=== PATIENT | female | born 1985 | race Hispanic/Latino ===

== ENCOUNTER → 2021-08-01 | Outpatient (CLI) | payer MEDICAID | END | disposition home or self-care (01) | LOC: RAH 08:31 | PROVIDERS: ATTEND Surgery | DX: K21.9 Gastro-esophageal reflux disease without esophagitis (principal); K44.9 Diaphragmatic hernia without obstruction or gangrene; Z98.84 Bariatric surgery status | CPT/HCPCS: 74240 ==

== ENCOUNTER 2024-02-13 21:37 | Emergency (ER) | payer MEDICAID ==
[~2024-02-13] VITALS: Ht 170.2 cm; Wt 70.3 kg
--- NOTE | 2024-02-13 21:44 | NUR ---
STREP, COVID AND FLU SWABS COLLECTED AND SENT FOR ANY FURTHER ORDERS UA CUP PROVIDED
--- NOTE | 2024-02-13 21:47 | NUR ---
ORDERS RECEIVED FROM Katty KILGORE NP AND АНДРЕЙ
[2024-02-13 22:13] LABS: RAPID GROUP A STREP negative (NEGATIVE)
[2024-02-13 22:19] LABS: SARS-CoV-2, RNA, NAAT NEGATIVE SARS CoV-2 (NEGATIVE)
[2024-02-13 22:23] LABS: INFLUENZA TYPE A Negative For Type A (NEGATIVE); INFLUENZA TYPE B Negative For Type B (NEGATIVE)
[2024-02-13 22:54] LABS: BASOPHILS # (AUTO) 0.03 K/uL (0.00-0.20); BASOPHILS % (AUTO) 0.6 % (0.0-5.0); EOSINOPHILS # (AUTO) 0.05 K/uL (0.00-0.70); HEMATOCRIT 38.9 % (36-48); IMMATURE GRANULOCYTE ABSOLUTE 0.02 K/uL (0-1); LYMPHOCYTES # (AUTO) 1.7 K/uL (1.0-4.8); LYMPHOCYTES % (AUTO) 35.1 % (21.0-51.0); MEAN CORPUSCULAR HEMOGLOBIN 30.3 pg (27.0-33.0); MEAN CORPUSCULAR HGB CONC 33.7 g/dL (32.0-36.0); MEAN CORPUSCULAR VOLUME 89.8 fL (79-99); MONOCYTES # (AUTO) 0.6 K/uL (0.1-1.0); MONOCYTES % (AUTO) 12.3 % (3.0-13.0); NEUTROPHILS # (AUTO) 2.4 K/uL (1.8-7.7); NEUTROPHILS % (AUTO) 50.6 % (40.0-77.0); PLATELET COUNT (AUTO) 331 K/uL (130-400); RED BLOOD CELL COUNT(AUTO) 4.33 MIL/uL (4.00-5.50); RED CELL DISTRIBUTION WIDTH 13.3 % (11.0-15.5); WHITE BLOOD COUNT (AUTO) 4.8 K/uL (4.8-10.8)
[2024-02-13 23:02] LABS: APPEARANCE,URINE CLEAR (CLEAR); BILIRUBIN,URINE NEGATIVE (NEGATIVE); COLOR,URINE YELLOW (YELLOW); GLUCOSE, URINE (UA) NEGATIVE (NEGATIVE); KETONES,URINE NEGATIVE (NEGATIVE); LEUKOCYTE ESTERASE ,URINE NEGATIVE Leu/uL (NEGATIVE); NITRATE,URINE NEGATIVE (NEGATIVE); OCCULT BLOOD,URINE NEGATIVE (NEGATIVE); POTASSIUM 3.5 mmol/L (3.5-5.1); PROTEIN,URINE 30 mg/dL (NEGATIVE); UROBILINOGEN,URINE 0.2 mg/dL (0.2-1.0)
[2024-02-13 23:03] LABS: ADD UA MICROSCOPIC YES
[2024-02-13 23:06] LABS: ALBUMIN 3.3 g/dL (3.5-5.0); BILIRUBIN,TOTAL 0.3 mg/dL (0.2-1.0)
[2024-02-13 23:07] LABS: MUCUS,URINE RARE LPF (None Seen); SQUAMOUS EPITHELIAL CELL,UR MOD /HPF (0-2)
--- NOTE | 2024-02-13 23:44 | NUR ---
CT EXAMS PENDING, PT IN LOBBY, NO IV, NO CONSENT
[2024-02-14] MEDS: 0.9%NACL 1000ML 1,000 ML IV STA (00:05)
[2024-02-14] MEDS ORDERED: IOHEXOL-350 75 ML VIAL IV ONE (00:05)
[2024-02-14 00:25] VITALS: TEMP 98.8
--- NOTE | 2024-02-14 00:26 | ERN ---
ED Note History of Present Illness Stated Complaint: BODYACHES,ABD PAIN,FEVER,GARAY,DIARRHEA Chief Complaint: Multiple Complaints Time Seen by MD: 21:40 Time Seen by Midlevel: 21:45 Dictation: 38-YEAR-OLD FEMALE WITH A MEDICAL HISTORY OF RA COMPLAINING OF ABDOMINAL PAIN, DIARRHEA, HEADACHE OR FEVERS SINCE FRIDAY NIGHT. PATIENT STATES SHE WAS ALREADY SEEN ON FRIDAY AT NOW WAS DIAGNOSED WITH DEHYDRATION AND STATES THAT HER SODIUM, CALCIUM, OR LOW AND SHE HAD ELEVATED WHITE COUNT. Allergies: Coded Allergies: emollient base (Unverified Allergy, Unknown, 02/13/24) tretinoin (Unverified Allergy, Unknown, 02/13/24) Past Medical History Past Medical History: Arthritis, Diabetes-Type II, Other Additional Past Medical Hx: THYROID Surgical History: Hysterectomy, Cholecystectomy, Other, Bariatric Surgery Surgical History Other: THYROID Review of System Dictation CONSTITUTIONAL: NEGATIVE FOR FEVER,CHILLS, AND WEIGHT LOSS EYES: NEGATIVE FOR INJURY, PAIN,REDNESS, AND DISCHARGE ENT: NEGATIVE FOR INJURY,PAIN OR SWELLING CARDIOVASCULAR: NEGATIVE FOR CHEST PAIN, PALPITATIONS, AND EDEMA RESPIRATORY: NEGATIVE FOR SHORTNESS OF BREATH, COUGH, AND WHEEZING, ABDOMEN/GI: POSITIVE FOR ABDOMINAL PAIN, NAUSEA, VOMITING, DIARRHEA, BACK: NEGATIVE FOR INJURY AND PAIN : NEGATIVE FOR INJURY, BLEEDING AND DISCHARGE MS/EXTREMITY: NEGATIVE FOR INJURY AND DEFORMITY SKIN: NEGATIVE FOR RASH, AND DISCOLORATION NEURO: NEGATIVE FOR HEADACHE, WEAKNESS, NUMBNESS, TINGLING, AND SEIZURE PSYCH: NEGATIVE FOR SUICIDE IDEATION, HOMICIDAL IDEATION, AND HALLUCINATIONS Review of Systems: was completed Initial Vital Sign VS Vital Signs Date Time Temp Pulse Resp B/P (MAP) Pulse Ox O2 Delivery O2 Flow Rate FiO2 02/13/24 21:39 98.2 95 20 143/101 100 Room Air 02/14/24 00:25 0 21 Physical Exam Dictation GENERAL: AWAKE, ALERT, NAD HEAD/FACE: NORMOCEPHALIC, ATRAUMATIC EYES: PERRL, EOMI, VISION AT BASELINE ENT: ORAL CAVITY CLEAR, TMS CLEAR, NO SIGNS OF INFECTION NECK: TRACHEA MIDLINE, SUPPLE, NO NUCHAL RIGIDITY CARDIOVASCULAR: RRR, NORMAL S1/S2, NO MRGS, NO JVD RESPIRATORY: CTAB, NO RESPIRATORY DISTRESS, NO RALES OR WHEEZES ABDOMEN: SOFT, NON-TENDER, NON-DISTENDED, NORMAL BOWEL SOUNDS, NO GUARDING OR REBOUND. SKIN: WARM, DRY, NORMAL TURGOR, NO RASH MS/EXTREMITY: PULSES EQUAL, NO CYANOSIS, NEUROVASCULAR INTACT, FROM NEURO: COAX4, GCS 15, STRENGTH 5/5, CN 2-12 INTACT, NORMAL CEREBELLAR EXAM, NORMAL GAIT, PSYCH: NORMAL BEHAVIOR, MOOD, AND AFFECT NORMAL Results (Laboratory/Radiology) Laboratory/Radiology Laboratory Tests Test 02/13/24 21:44 02/13/24 22:34 Influenza Type A Antigen Negative For Type A Influenza Type B Antigen Negative For Type B SARS-CoV-2, RNA, NAAT NEGATIVE SARS CoV-2 Group A Streptococcus Rapid negative (NEGATIVE) White Blood Count 4.8 K/uL (4.8-10.8) Red Blood Count 4.33 MIL/uL (4.00-5.50) Hemoglobin 13.1 g/dL (12.0-16.0) Hematocrit 38.9 % (36-48) Mean Corpuscular Volume 89.8 fL (79-99) Mean Corpuscular Hemoglobin 30.3 pg (27.0-33.0) Mean Corpuscular Hemoglobin Concent 33.7 g/dL (32.0-36.0) Red Cell Distribution Width 13.3 % (11.0-15.5) Platelet Count 331 K/uL (130-400) Mean Platelet Volume 10.3 fL (7.5-10.5) Immature Granulocyte % (Auto) 0.4 % (0-1) Neutrophils (%) (Auto) 50.6 % (40.0-77.0) Lymphocytes (%) (Auto) 35.1 % (21.0-51.0) Monocytes (%) (Auto) 12.3 % (3.0-13.0) Eosinophils (%) (Auto) 1.0 % (0.0-8.0) Basophils (%) (Auto) 0.6 % (0.0-5.0) Neutrophils # (Auto) 2.4 K/uL (1.8-7.7) Lymphocytes # (Auto) 1.7 K/uL (1.0-4.8) Monocytes # (Auto) 0.6 K/uL (0.1-1.0) Eosinophils # (Auto) 0.05 K/uL (0.00-0.70) Basophils # (Auto) 0.03 K/uL (0.00-0.20) Absolute Immature Granulocyte (auto 0.02 K/uL (0-1) Nucleated Red Blood Cells 0.0 % (0.0-0.19) Urine Color YELLOW (YELLOW) Urine Appearance CLEAR (CLEAR) Urine pH 6.0 (5.0-8.0) Urine Specific [place] 1.018 (1.001-1.031) Urine Protein 30 mg/dL (NEGATIVE) H Urine Glucose (UA) NEGATIVE mg/dL (NEGATIVE) Urine Ketones NEGATIVE mg/dL (NEGATIVE) Urine Occult Blood NEGATIVE (NEGATIVE) Urine Nitrate NEGATIVE (NEGATIVE) Urine Bilirubin NEGATIVE mg/dL (NEGATIVE) Urine Urobilinogen 0.2 mg/dL (0.2-1.0) Urine Leukocyte Esterase NEGATIVE [place]/uL Urine RBC 2-5 /HPF (0-1) H Urine WBC 2-5 /HPF (0-1) H Urine Squamous Epithelial Cells MOD /HPF (0-2) Urine Bacteria None /HPF (None Seen) Sodium Level 128 mmol/L (136-145) L Potassium Level 3.5 mmol/L (3.5-5.1) Chloride Level 100 mmol/L (101-111) L Carbon Dioxide Level 21 mmol/L (21-32) Blood Urea Nitrogen 12 mg/dL (7-18) Creatinine 1.0 mg/dL (0.5-1.0) Glomerular Filtration Rate Calc 74 mL/min (>90) Random Glucose 75 mg/dL (70-105) Total Calcium 8.9 mg/dL (8.5-10.1) Total Bilirubin 0.3 mg/dL (0.2-1.0) Aspartate Amino Transf (AST/SGOT) 32 U/L (10-37) Alanine Aminotransferase (ALT/SGPT) 289 U/L (12-78) H Alkaline Phosphatase 214 U/L (50-136) H Total Protein 7.0 g/dL (6.0-8.3) Albumin 3.3 g/dL (3.5-5.0) L Labs Reviewed?: Yes ED Course ED Course Orders Procedure Category Date Status Time Influenza Type A & B, LAB 02/13/24 Complete Rapid 21:47 Rapid (Group A Strep) LAB 02/13/24 Complete 21:47 Covid Rna Naat LAB 02/13/24 Complete 21:47 Cbc With Differential LAB 02/13/24 Complete 22:29 Comprehensive LAB 02/13/24 Complete Metabolic Panel 22:29 Stool Panel Gi By Pcr LAB 02/13/24 In Process 22:29 Urinalysis Profile LAB 02/13/24 Complete 22:29 Ct Abdomen/Pelvis CT 02/13/24 Resulted W/Contrast 22:29 0.9%Nacl 1000ml (Ns PHA 02/13/24 Complete 1000ml) 23:15 Iohexol (Omnipaque) PHA 02/14/24 Complete 00:05 Pantoprazole 40mg Inj PHA 02/14/24 Complete (Protonix 40mg Inj 00:37 Current Medications Medications (Trade) Dose Ordered Sig/Jennifer Route PRN Reason Start Time Stop Time Status Last Admin Dose Admin Iohexol (Omnipaque) 75 ml STK-MED ONCE IV 02/14/24 00:05 02/14/24 00:06 DC Pantoprazole Sodium (PROTonix 40MG INJ) 40 mg ONCE STAT IVP 02/14/24 00:37 02/14/24 00:38 DC 02/14/24 00:49 Sodium Chloride 1,000 ml @ 1,000 mls/hr Q1H STAT IV 02/13/24 23:15 02/14/24 00:14 DC 02/14/24 00:05 Vital Signs Date Time Temp Pulse Resp B/P (MAP) Pulse Ox O2 Delivery O2 Flow Rate FiO2 02/14/24 00:25 98.8 95 18 128/87 99 Room Air* 0 21 02/13/24 21:39 98.2 95 20 143/101 100 Room Air Medical Decision Making MDM MDM:38-YEAR-OLD FEMALE WITH A MEDICAL HISTORY OF RA COMPLAINING OF ABDOMINAL PAIN, DIARRHEA, HEADACHE OR FEVERS SINCE FRIDAY NIGHT. PATIENT STATES SHE WAS ALREADY SEEN ON FRIDAY AT NOW WAS DIAGNOSED WITH DEHYDRATION AND STATES THAT HER SODIUM, CALCIUM, OR LOW AND SHE HAD ELEVATED WHITE COUNT. TO EXAM PATIENT HAS CLEAR BILATERAL LUNG SOUNDS, ABDOMEN IS SOFT NONDISTENDED. NO TENDERNESS TO PALPATION. CBC DOES NOT SHOW ANY LEUKOCYTOSIS, NO ANEMIA, NO THROMBOCYTOPENIA. CHEMISTRY SHOWS MILD HYPONATREMIA, IN HIS GIVEN IN THE EMERGENCY ROOM. THE REST OF THE LABS ARE WITHIN NORMAL RANGE. CT SCAN SHOWS ENTEROCOLITIS. PATIENT WAS ABLE TO EAT A SANDWICH, DID NOT THROW UP BUT DID HAVE A BOWEL MOVEMENT AFTER EATING. SPECIMEN WAS SENT FOR GI PCR. ON REASSESSMENT PATIENT STATES HE FEELS BETTER, EDUCATED HER THAT I WILL BE DISCHARGED HOME WITH AN ANTACID IN NAUSEA MEDICATION TO FOLLOW UP WITH HER PCP ON FRIDAY. EDUCATED PATIENT IF HER GI PCR IS POSITIVE THEY WILL CALL HER IN FOR RESULTS. PATIENT VERBALIZED UNDERSTANDING, ANSWERED ALL QUESTIONS. DIFFERENTIAL DIAGNOSIS: GASTROENTERITIS, DIVERTICULITIS, DEHYDRATION, ELECTROLYTE ABNORMALITY. RATIONALE: TESTS CONSIDERED AND ORDERED SECONDARY TO SHARED DECISION MAKING INCLUDE: PREVIOUS OUTSIDE RECORDS REVIEWED: OLD ER VISITS. RISK OF COMPLICATION AND/OR MORBIDITY OR MORTALITY OF PATIENT MANAGEMENT: NONE MEDICATIONS-PER MEDICATION RECONCILIATION NEED FOR HOSPITALIZATION: PATIENT DOES NOT MEET CRITERIA FOR HOSPITALIZATION. NEED FOR EMERGENCY MAJOR/MINOR SURGERY: NO THERE ARE NO SOCIAL CONCERNS WITH THIS PATIENT. PRESCRIPTION DRUG MANAGEMENT PRESCRIPTIONS WILL INCLUDE SYMPTOMATIC CARE PATIENT'S PRIOR EXTERNAL MEDICAL RECORDS FROM OTHER ER VISITS WERE REVIEWED BY ME INDICATED. PRIOR TESTING AND RESULTS FROM PREVIOUS VISITS WERE REVIEWED. PRIOR TESTS WERE TAKEN INTO ACCOUNT WITH MEDICAL DECISION MAKING AND RESOURCE UTILIZATION, INDEPENDENT HISTORIAN/HISTORIANS WERE USED TO OBTAIN COMPLETE MEDICAL HISTORY. I INDEPENDENTLY INTERPRETED THE TEST THAT WERE PERFORMED, RESULTS WERE REVIEWED BY ME AND CONSIDERED FINDINGS ON RADIOLOGY IF ORDERED. MEDICAL MANAGEMENT AND EXAMINATION INTERPRETATION DISCUSSIONS WERE HAD BY ME WITH OTHER QUALIFIED HEALTHCARE PROFESSIONALS INDICATED FOR THE PATIENT'S CARE. DX & DISP Disposition: Discharge Departure Impression: Primary Impression: Viral enterocolitis Condition: Stable Scripts Ondansetron (Ondansetron Odt) 4 Mg Tab.rapdis 4 MG PO Q6HPRN PRN for nausea, #16 TAB 0 Refills Prov: GILLES KILGORE NP 02/14/24 Famotidine (Pepcid) 20 Mg Tablet 20 MG PO DAILY for 20 Days, #20 TAB Prov: GILLES KILGORE NP 02/14/24 Referrals: SELF,REFERRAL (PCP) Time of Disposition: 02:06 I have reviewed the case, and I agree with, Diagnosis and Plan GILLES IKLGORE NP Feb 14, 2024 00:26
[2024-02-14] MEDS: PANTOPrazole 40 MG/VIAL IVP STA (00:49)
--- NOTE | 2024-02-14 00:53 | HMCIMG ---
CT ABDOMEN/PELVIS W/CONTRAST HISTORY: Body aches and abdominal pain COMPARISON: None TECHNIQUE: Multiple sequential axial images of the abdomen and pelvis were obtained from the dome of the diaphragm through symphysis pubis. Patient was given 75 cc of Omnipaque through intravenous route. Oral contrast was not given. FINDINGS: No pleural effusion is seen bilaterally. There is no evidence of parenchymal disease or pulmonary nodule of the visualized lower lungs. Degenerative changes of the thoracolumbar spine are present. The heart is not enlarged. Liver measures 16.3 cm. Post cholecystectomy changes are seen. Post gastric bypass surgical changes are seen. There is fat-containing right adrenal mass measuring 2 cm may be related to adrenal adenoma. There is fluid-filled colon may be related to enterocolitis. The liver, spleen, left adrenal gland and pancreas are unremarkable. There is no evidence of hydronephrosis bilaterally. No evidence of renal stone is seen. Fecal material is seen in the colon. There are normal size retroperitoneal and mesenteric lymph nodes. No ascites is seen. Appendix is not seen limiting evaluation. Uterus is not seen. Pelvic sidewalls are symmetric bilaterally. Bladder is poorly distended. IMPRESSION: 1. Fluid-filled colon may be related to enterocolitis/diarrhea. No ascites is seen. CT was performed with one or more following dose reduction techniques: automated exposure control, adjustment of the mA and kv according to patient's size, or use of a iterative reconstruction technique.
[2024-02-14] MEDS ORDERED: ONDA-243 PO (02:06)
[2024-02-14] MEDS ORDERED: FAMO-136 PO (02:06)
[2024-02-14 02:36] VITALS: BP 123/75; PULSE 88; RESP 18; O2SAT 100
[2024-02-16 13:12] LABS: C DIFFICILE TOXIN A/B Not Detected (Not Detected); ENTEROAGGREGATIVE ECOLI Not Detected (Not Detected); GIARDIA LAMBLIA Not Detected (Not Detected); PLESIOMONAS SHIGELOIDES Not Detected (Not Detected); SAPOVIRUS Not Detected (Not Detected); SHIGELLA/ENTEROINVASIVE E COLI Not Detected (Not Detected); VIBRIO Not Detected (Not Detected); VIBRIO CHOLERAE Not Detected (Not Detected)
--- NOTE | 2024-02-26 12:51 | NUR ---
CX CALL BACK PT WAS NOTIFIED OF +GI PCR AND ABX RX BEING CALLED IN; DR Sima TOPETE RX CIPRO 500 PO BID FOR 5 DAYS; RX WAS CALLED IN TO [facility]
== END 2024-02-14 02:38 | disposition home or self-care (01) ==
LOC: EDH 21:37
DX: A08.4 Viral intestinal infection, unspecified (principal); E11.9 Type 2 diabetes mellitus without complications; M19.90 Unspecified osteoarthritis, unspecified site; Z90.49 Acquired absence of other specified parts of digestive tract; Z90.710 Acquired absence of both cervix and uterus; Z20.822 Contact with and (suspected) exposure to COVID-19
CPT/HCPCS: 99285; 74177; 87635; 80053; 85025; 87880; 87804 ×2; 81001; 36415; 87507; 96374; 96361; J7030; J2470; Q9967

== ENCOUNTER 2025-03-02 12:13 | Emergency (ER) | payer MEDICAID ==
[~2025-03-02] VITALS: Ht 170.2 cm; Wt 65.3 kg
[~2025-03-02 12:13] MED LIST: FAMO-136 PO; ONDA-243 PO
[2025-03-02 13:03] LABS: IMMATURE GRANULOCYTE ABSOLUTE 0.03 K/uL (0-1); NUCLEATED RED BLOOD CELLS 0.0 % (0.0-0.19); PLATELET COUNT (AUTO) 331 K/uL (130-400); RED BLOOD CELL COUNT(AUTO) 4.09 MIL/uL (4.00-5.50); RED CELL DISTRIBUTION WIDTH 12.2 % (11.0-15.5); WHITE BLOOD COUNT (AUTO) 9.1 K/uL (4.8-10.8)
[2025-03-02 13:12] LABS: APPEARANCE,URINE CLOUDY (CLEAR); GLUCOSE, URINE (UA) NEGATIVE (NEGATIVE); LEUKOCYTE ESTERASE ,URINE 250 Leu/uL (NEGATIVE); NITRATE,URINE NEGATIVE (NEGATIVE); OCCULT BLOOD,URINE NEGATIVE (NEGATIVE)
[2025-03-02 13:14] LABS: ADD UA MICROSCOPIC YES
[2025-03-02 13:17] LABS: ASPARTATE AMINOTRANSFERASE 23.0 U/L (10-37); CREATINE KINASE, TOTAL 22.0 U/L (21-232); CREATININE 0.8 mg/dL (0.5-1.0); GLOMERULAR FILTR. RATE CALC 96.0 mL/min (>90); GLUCOSE,RANDOM 80.0 mg/dL (70-105); SODIUM SERUM 140.0 mmol/L (136-145); TOTAL PROTEIN, SERUM 6.4 g/dL (6.0-8.3); UREA NITROGEN, BLOOD 12.0 mg/dL (7-18)
--- NOTE | 2025-03-02 13:20 | EKG ---
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
[2025-03-02 13:21] LABS: SQUAMOUS EPITHELIAL CELL,UR MOD /HPF (0-2)
[2025-03-02] MEDS: 0.9%NACL 1000ML 1,000 ML IV ONE (13:29)
--- NOTE | 2025-03-02 15:03 | HMCIMG ---
EXAM: CT Head Without IV contrast. CLINICAL HISTORY: headache TECHNIQUE: Axial computed tomography images of the head/brain without intravenous contrast. COMPARISON: None provided. FINDINGS: BRAIN: No evidence of acute hemorrhage. No mass lesion. No CT evidence for acute territorial infarct. No midline shift or extra-axial collections. VENTRICLES: No hydrocephalus. ORBITS: The orbits are unremarkable. SINUSES AND MASTOIDS: The paranasal sinuses and mastoid air cells are clear. BONES: No fracture. SOFT TISSUES: Unremarkable. IMPRESSION: No acute intracranial abnormality. /[place]
[2025-03-02] MEDS ORDERED: NITR100C4 PO (16:01)
[2025-03-02] MEDS ORDERED: ONDA-243 PO (16:01)
--- NOTE | 2025-03-02 16:02 | ERN ---
ED Note History of Present Illness Stated Complaint: MULTIPLE COMPLAINTS Chief Complaint: Multiple Complaints Time Seen by MD: 12:33 Dictation: 39-year-old female presenting to the emergency department with generalized weakness body aches and nausea, patient reports that she does take chemotherapy infusion for autoimmune disease, but has not been feeling well over the past few weeks. Allergies: Coded Allergies: emollient base (Unverified Allergy, Unknown, 02/13/24) tretinoin (Unverified Allergy, Unknown, 02/13/24) upadacitinib (Unverified Allergy, Unknown, SHORTNESS OF BREATH, 03/02/25) Home Meds Active Scripts Ondansetron (Ondansetron Odt) 4 Mg Tab.rapdis, 4 MG PO Q6HPRN PRN for nausea, #16 TAB 0 Refills Prov:KILGORE,GILLES BACK FILLER OPERATOR 02/14/24 Famotidine (Pepcid) 20 Mg Tablet, 20 MG PO DAILY for 20 Days, #20 TAB Prov:KILGOREGILLES BACK FILLER OPERATOR 02/14/24 Past Medical History Past Medical History: Anemia, Diabetes-Type II, High Cholesterol, Hypothyroid, Migraines Additional Past Medical Hx: AUTOIMMUNE DISORDER Surgical History: Hysterectomy, Tonsillectomy, Cholecystectomy Surgical History Other: GASTRIC BYPASS AND SLEEVE, THYROIDECTOMY Review of System Dictation Constitutional: Negative for fever,chills, and weight loss Eyes: Negative for injury, pain,redness, and discharge ENT: Negative for injury,pain or swelling Cardiovascular: Negative for chest pain, palpitations, and edema Respiratory: Negative for shortness of breath, cough, and wheezing, Abdomen/GI: Per HPI : Negative for injury, bleeding and discharge MS/Extremity: Negative for injury and deformity Skin: Negative for rash, and discoloration Neuro: Per HPI Initial Vital Sign VS Vital Signs Date Time Temp Pulse Resp B/P (MAP) Pulse Ox O2 Delivery O2 Flow Rate FiO2 03/02/25 12:17 98.1 90 18 125/94 98 Room Air 0 03/02/25 13:15 21 Physical Exam Dictation General: awake, alert, appears weak Head/Face: Normocephalic, atraumatic Eyes: PERRL, EOMI, vision at baseline ENT: oral cavity clear, TMs clear, no signs of infection Neck: Trachea midline, supple, no nuchal rigidity Cardiovascular: RRR, normal S1/S2, No MRGs, no JVD Respiratory: CTAB, no respiratory distress, No rales or wheezes Abdomen: Soft, non-tender, non-distended, normal bowel sounds, no guarding or rebound. Skin: Warm, dry, normal turgor, no rash MS/Extremity: Pulses equal, no cyanosis, neurovascular intact, FROM Neuro: COAx4, GCS 15, strength 5/5, CN 2-12 intact, normal cerebellar exam, normal gait, Results (Laboratory/Radiology) Laboratory/Radiology Laboratory Tests Test 03/02/25 12:51 03/02/25 13:01 White Blood Count 9.1 K/uL (4.8-10.8) Red Blood Count 4.09 MIL/uL (4.00-5.50) Hemoglobin 12.3 g/dL (12.0-16.0) Hematocrit 37.2 % (36-48) Mean Corpuscular Volume 91.0 fL (79-99) Mean Corpuscular Hemoglobin 30.1 pg (27.0-33.0) Mean Corpuscular Hemoglobin Concent 33.1 g/dL (32.0-36.0) Red Cell Distribution Width 12.2 % (11.0-15.5) Platelet Count 331 K/uL (130-400) Mean Platelet Volume 10.1 fL (7.5-10.5) Immature Granulocyte % (Auto) 0.3 % (0-1) Neutrophils (%) (Auto) 77.4 % (40.0-77.0) H Lymphocytes (%) (Auto) 15.0 % (21.0-51.0) L Monocytes (%) (Auto) 6.6 % (3.0-13.0) Eosinophils (%) (Auto) 0.5 % (0.0-8.0) Basophils (%) (Auto) 0.2 % (0.0-5.0) Neutrophils # (Auto) 7.1 K/uL (1.8-7.7) Lymphocytes # (Auto) 1.4 K/uL (1.0-4.8) Monocytes # (Auto) 0.6 K/uL (0.1-1.0) Eosinophils # (Auto) 0.05 K/uL (0.00-0.70) Basophils # (Auto) 0.02 K/uL (0.00-0.20) Absolute Immature Granulocyte (auto 0.03 K/uL (0-1) Nucleated Red Blood Cells 0.0 % (0.0-0.19) Sodium Level 140 mmol/L (136-145) Potassium Level 3.9 mmol/L (3.5-5.1) Chloride Level 107 mmol/L (101-111) Carbon Dioxide Level 27 mmol/L (21-32) Blood Urea Nitrogen 12 mg/dL (7-18) Creatinine 0.8 mg/dL (0.5-1.0) Glomerular Filtration Rate Calc 96 mL/min (>90) Random Glucose 80 mg/dL (70-105) Total Calcium 8.3 mg/dL (8.5-10.1) L Total Bilirubin 0.5 mg/dL (0.2-1.0) Direct Bilirubin 0.1 mg/dL (0.0-0.3) Aspartate Amino Transf (AST/SGOT) 23 U/L (10-37) Alanine Aminotransferase (ALT/SGPT) 39 U/L (12-78) Alkaline Phosphatase 42 U/L (50-136) L Total Creatine Kinase 22 U/L (21-232) Troponin I High Sensitivity 4 ng/L (4-50) Total Protein 6.4 g/dL (6.0-8.3) Albumin 3.4 g/dL (3.5-5.0) L Urine Color YELLOW (YELLOW) Urine Appearance CLOUDY (CLEAR) H Urine pH 6.0 (5.0-8.0) Urine Specific [place] 1.018 (1.001-1.031) Urine Protein NEGATIVE mg/dL (NEGATIVE) Urine Glucose (UA) NEGATIVE mg/dL (NEGATIVE) Urine Ketones NEGATIVE mg/dL (NEGATIVE) Urine Occult Blood NEGATIVE (NEGATIVE) Urine Nitrate NEGATIVE (NEGATIVE) Urine Bilirubin NEGATIVE mg/dL (NEGATIVE) Urine Urobilinogen 0.2 mg/dL (0.2-1.0) Urine Leukocyte Esterase 250 Crispin/uL (NEGATIVE) H Urine RBC 2-5 /HPF (0-1) H Urine WBC 26-50 /HPF (0-1) H Urine Squamous Epithelial Cells MOD /HPF (0-2) Urine Bacteria Few /HPF (None Seen) Labs Reviewed?: Yes EKG Comment: Heart rate 87 normal sinus rhythm normal intervals no STEMI ED Course ED Course Orders Procedure Category Date Status Time 12 Lead Ekg Tracing- EKG 03/02/25 Complete Technical 12:41 Basic Metabolic Panel LAB 03/02/25 Complete 12:41 Cbc With Differential LAB 03/02/25 Complete 12:41 Hepatic Function Panel LAB 03/02/25 Complete 12:41 Creatine Kinase, Total LAB 03/02/25 Complete 12:41 Troponin I High LAB 03/02/25 Complete Sensitivity 12:41 Urinalysis Profile LAB 03/02/25 Complete 12:41 Ondansetron 4mg Inj PHA 03/02/25 Complete (Zofran 4mg Inj) 12:41 0.9%Nacl 1000ml (Ns PHA 03/02/25 Complete 1000ml) 13:00 Ct Head/Brain W/O CT 03/02/25 Resulted Contrast 13:12 Culture Urine RULA 03/02/25 In Process 13:15 Morphine 4mg Syg PHA 03/02/25 Complete (Morphine 4mg Syg) 14:00 Blood Cult RULA 03/02/25 Transmitted 15:51 Lactic Acid LAB 03/02/25 Transmitted 15:51 Ceftriaxone 2gm Vial PHA 03/02/25 Transmitted (Rocephin 2gm Inj) 15:51 Current Medications Medications (Trade) Dose Ordered Sig/Jennifer Route PRN Reason Start Time Stop Time Status Last Admin Dose Admin Morphine Sulfate (morPHINE 4MG SYG) 4 mg ONCE ONCE IVP 03/02/25 14:00 03/02/25 14:01 DC 03/02/25 14:24 Ondansetron HCl (zoFRAN 4MG INJ) 4 mg ONCE STAT IVP 03/02/25 12:41 03/02/25 12:43 DC 03/02/25 13:29 Sodium Chloride 1,000 ml @ 0 mls/hr ONCE ONCE IV 03/02/25 13:00 03/02/25 13:01 DC 03/02/25 13:29 Vital Signs Date Time Temp Pulse Resp B/P (MAP) Pulse Ox O2 Delivery O2 Flow Rate FiO2 03/02/25 13:15 99.0 95 18 121/95 100 Room Air* 0 21 03/02/25 12:17 98.1 90 18 125/94 98 Room Air 0 Medical Decision Making MDM MDM: Differential diagnosis: Rationale: Tests considered and ordered secondary to shared decision making include: Previous outside records reviewed: Old ER visits. Risk of complication and/or morbidity or mortality of patient management: None Medications-Per medication reconciliation Need for hospitalization: Patient does not meet criteria for hospitalization. Need for emergency major/minor surgery: No There are no social concerns with this patient. Prescription drug management Prescriptions will include symptomatic care Patient's prior external medical records from other ER visits were reviewed by me as indicated. Prior testing and results from previous visits were reviewed. Prior tests were taken into account with medical decision making and resource utilization, independent historian/historians were used to obtain complete medical history. I independently interpreted the test that were performed, results were reviewed by me and considered findings on radiology if ordered. Medical management and examination interpretation discussions were had by me with other qualified healthcare professionals as indicated for the patient's care. 39-year-old female generalized weakness UTI, stable exam and workup, symptoms improved wants to go home tolerating p.o. intake prescriptions given. DX & DISP Disposition: Discharge Departure Impression: Primary Impression: Acute weakness Additional Impression: Acute UTI Condition: Stable Scripts Ondansetron (Ondansetron Odt) 4 Mg Tab.rapdis 4 MG PO BID for vomiting for 5 Days, #10 TAB Prov: NIURKA TOPETE MD 03/02/25 Nitrofurantoin Monohyd/M-Cryst (Macrobid 100 mg Capsule) 100 Mg Capsule 1 CAP PO BID for 7 Days, #14 CAP 0 Refills Prov: NIURKA TOPETE MD 03/02/25 Referrals: SELF,REFERRAL (PCP) NIURKA TOPETE MD Mar 02, 2025 16:02
[2025-03-02 16:46] VITALS: BP 126/92; PULSE 87; RESP 18; TEMP 99; O2SAT 99
== END 2025-03-02 16:54 | disposition home or self-care (01) ==
LOC: EDH 12:13
DX: N39.0 Urinary tract infection, site not specified (principal); E03.9 Hypothyroidism, unspecified; E11.9 Type 2 diabetes mellitus without complications; E78.00 Pure hypercholesterolemia, unspecified; Z90.49 Acquired absence of other specified parts of digestive tract; Z90.710 Acquired absence of both cervix and uterus; Z98.84 Bariatric surgery status
CPT/HCPCS: 99285; 96365; 70450; 96361; 96375; 82550; 80076; 84484; 80048; 85025; 87040 ×2; 87086 ×2; 87186; 83605; 81001; 36415; 93005; J7030; J0696; J2405; J2270

== ENCOUNTER 2025-04-26 10:22 | Observation (INO) | payer MEDICAID ==
[~2025-04-26] VITALS: Ht 170.2 cm; Wt 65.6 kg
[~2025-04-26 10:22] MED LIST changes: +ATOR20TA65 PO; +BUSP15 PO; +ESCI20TA PO; -FAMO-136 PO; +GALC120P SQ; +LEVO125C5 PO; +NAPR-1194 PO; -ONDA-243 PO; +PRED5TAB PO; +RITU10VI IV; +SUMA100T16 PO
--- NOTE | 2025-04-26 10:47 | ERN ---
ED Note History of Present Illness Stated Complaint: RT RIB PAIN,SOB,HEADACHE,DIZZINESS,UTI Chief Complaint: Multiple Complaints Time Seen by MD: 10:25 Time Seen by Midlevel: 10:28 Dictation: 39 Female with a history of rheumatoid arthritis, hypothyroidism, cholesterol and anemia coming in with multiple complaints. Patient states about a week ago she was at a green party was wearing a tight dress and states since then has a had right rib pain under her breast that radiates to her mid back. And also stating he has urinary symptoms. Patient states she was seen at [facility] couple of days ago and was given tramadol and where they did x-rays and told her everything was normal. Also the diagnosed with a UTI put her on Keflex. Patient states she is still having urinary tract symptoms in his states it is she still has a right rib pain even though she is taking her tramadol. Has not any trauma, denies any chest pain or chest discomfort. Allergies: Coded Allergies: emollient base (Unverified Allergy, Unknown, 02/13/24) tretinoin (Unverified Allergy, Unknown, 02/13/24) upadacitinib (Unverified Allergy, Unknown, SHORTNESS OF BREATH, 03/02/25) Home Meds Reported Medications Rituximab-Abbs (Truxima) 10 Mg/Ml Vial, 1000 MG IV [id number], VIAL 03/14/25 Atorvastatin Calcium (Atorvastatin Calcium) 20 Mg Tablet, 1 TAB PO DAILY for 30 Days, #30 TAB 0 Refills 03/14/25 Sumatriptan Succinate (Sumatriptan Succinate) 100 Mg Tablet, 100 MG PO DAILY, TAB 03/14/25 Buspirone HCl (Buspar) 15 Mg Tab, 1 TAB PO HS for 30 Days, #60 TAB 0 Refills 03/14/25 Escitalopram Oxalate (Lexapro) 20 Mg Tablet, 1 TAB PO HS for 30 Days, #30 TAB 0 Refills 03/14/25 Naproxen (Naproxen) 500 Mg Tablet, 1 TAB PO BID PRN for ARTHRITIS for 30 Days, #60 TAB 0 Refills 03/14/25 Prednisone (Prednisone) 5 Mg Tablet, 1 TAB PO DAILY PRN for ARTHRITIS FLARE UP for 30 Days, #30 TAB 0 Refills 03/14/25 Galcanezumab-Gnlm (Emgality) 120 Mg/Ml Pen.injctr, 120 MG SQ QMONTH 03/14/25 Levothyroxine Sodium (Levothyroxine) 125 Mcg Capsule, 1 CAP PO DAILY for 30 Days, #30 CAP 0 Refills 03/14/25 Past Medical History Past Medical History: Anemia, Arthritis, Diabetes-Type II, High Cholesterol, Hypothyroid, Migraines Additional Past Medical Hx: AUTOIMMUNE DISORDER Surgical History: Hysterectomy, Tonsillectomy, Cholecystectomy Surgical History Other: GASTRIC BYPASS AND SLEEVE, THYROIDECTOMY Review of System Dictation Constitutional: Negative for fever,chills, and weight loss Eyes: Negative for injury, pain,redness, and discharge ENT: Negative for injury,pain or swelling Cardiovascular: Negative for chest pain, palpitations, and edema, complaining of right rib pain Respiratory: Negative for shortness of breath, cough, and wheezing, Abdomen/GI: Of pelvic pain, suprapubic pain with nausea and vomiting Back: Negative for injury and pain : Negative for injury, bleeding and discharge MS/Extremity: Negative for injury and deformity Skin: Negative for rash, and discoloration Neuro: Negative for headache, weakness, numbness, tingling, and seizure Psych: Negative for suicide ideation, homicidal ideation, and hallucinations Review of Systems: was completed Initial Vital Sign VS Vital Signs Date Time Temp Pulse Resp B/P (MAP) Pulse Ox O2 Delivery O2 Flow Rate FiO2 04/26/25 10:24 97.9 108 20 122/77 99 Room Air Physical Exam Dictation General: awake, alert, NAD Head/Face: Normocephalic, atraumatic Eyes: PERRL, EOMI, vision at baseline ENT: oral cavity clear, TMs clear, no signs of infection Neck: Trachea midline, supple, no nuchal rigidity Cardiovascular: RRR, normal S1/S2, No MRGs, no JVD, pain to palpation under the right breast. Respiratory: CTAB, no respiratory distress, No rales or wheezes Abdomen: Soft, non-tender, non-distended, normal bowel sounds, no guarding or rebound. Skin: Warm, dry, normal turgor, no rash MS/Extremity: Pulses equal, no cyanosis, neurovascular intact, FROM Neuro: COAx4, GCS 15, strength 5/5, CN 2-12 intact, normal cerebellar exam, normal gait, Psych: Normal behavior, mood, and affect normal Results (Laboratory/Radiology) Laboratory/Radiology Laboratory Tests Test 04/26/25 10:44 04/26/25 10:55 White Blood Count 11.0 K/uL (4.8-10.8) H Red Blood Count 3.99 MIL/uL (4.00-5.50) L Hemoglobin 11.9 g/dL (12.0-16.0) L Hematocrit 37.0 % (36-48) Mean Corpuscular Volume 92.7 fL (79-99) Mean Corpuscular Hemoglobin 29.8 pg (27.0-33.0) Mean Corpuscular Hemoglobin Concent 32.2 g/dL (32.0-36.0) Red Cell Distribution Width 12.5 % (11.0-15.5) Platelet Count 402 K/uL (130-400) H Mean Platelet Volume 10.3 fL (7.5-10.5) Immature Granulocyte % (Auto) 0.5 % (0-1) Neutrophils (%) (Auto) 81.0 % (40.0-77.0) H Lymphocytes (%) (Auto) 11.6 % (21.0-51.0) L Monocytes (%) (Auto) 6.2 % (3.0-13.0) Eosinophils (%) (Auto) 0.5 % (0.0-8.0) Basophils (%) (Auto) 0.2 % (0.0-5.0) Neutrophils # (Auto) 8.9 K/uL (1.8-7.7) H Lymphocytes # (Auto) 1.3 K/uL (1.0-4.8) Monocytes # (Auto) 0.7 K/uL (0.1-1.0) Eosinophils # (Auto) 0.06 K/uL (0.00-0.70) Basophils # (Auto) 0.02 K/uL (0.00-0.20) Absolute Immature Granulocyte (auto 0.05 K/uL (0-1) Nucleated Red Blood Cells 0.0 % (0.0-0.19) Sodium Level 138 mmol/L (136-145) Potassium Level 3.8 mmol/L (3.5-5.1) Chloride Level 104 mmol/L (101-111) Carbon Dioxide Level 29 mmol/L (21-32) Blood Urea Nitrogen 10 mg/dL (7-18) Creatinine 0.8 mg/dL (0.5-1.0) Glomerular Filtration Rate Calc 96 mL/min (>90) Random Glucose 93 mg/dL (70-105) Total Calcium 8.6 mg/dL (8.5-10.1) Urine Color LIGHT-YELLOW (YELLOW) Urine Appearance HAZY (CLEAR) Urine pH 6.5 (5.0-8.0) Urine Specific [place] 1.014 (1.001-1.031) Urine Protein NEGATIVE mg/dL (NEGATIVE) Urine Glucose (UA) 50 mg/dL (NEGATIVE) H Urine Ketones NEGATIVE mg/dL (NEGATIVE) Urine Occult Blood +- (TRACE) (NEGATIVE) H Urine Nitrate NEGATIVE (NEGATIVE) Urine Bilirubin NEGATIVE mg/dL (NEGATIVE) Urine Urobilinogen 0.2 mg/dL (0.2-1.0) Urine Leukocyte Esterase 500 Crispin/uL (NEGATIVE) H Urine RBC 6-10 /HPF (0-1) H Urine WBC TNTC /HPF (0-1) H Urine Squamous Epithelial Cells MOD /HPF (0-2) Urine Bacteria FEW /HPF (None Seen) Labs Reviewed?: Yes ED Course ED Course Orders Procedure Category Date Status Time Cbc With Differential LAB 04/26/25 Complete 10:31 Basic Metabolic Panel LAB 04/26/25 Complete 10:31 Urinalysis Profile LAB 04/26/25 Complete 10:31 Ribs Uni Rt W Pa RAD 04/26/25 Taken Chest 3+ Vws 10:31 0.9%Nacl 1000ml (Ns PHA 04/26/25 Complete 1000ml) 10:31 Morphine 2mg Syg PHA 04/26/25 Complete (Morphine 2mg Syg) 11:00 Ondansetron 4mg Inj PHA 04/26/25 Complete (Zofran 4mg Inj) 11:00 Lidocaine (Lidocaine PHA 04/26/25 Complete Patch 4%) 11:00 Culture Urine RULA 04/26/25 In Process 11:04 Ceftriaxone 1g Vial PHA 04/26/25 Complete (Rocephine 1g Inj) 12:00 Morphine 4mg Syg PHA 04/26/25 In Process (Morphine 4mg Syg) 12:30 Current Medications Medications (Trade) Dose Ordered Sig/Jennifer Route PRN Reason Start Time Stop Time Status Last Admin Dose Admin Ceftriaxone Sodium (ROCEphine 1G INJ) 1 gm ONCE ONCE IVPB 04/26/25 12:00 04/26/25 12:01 DC 04/26/25 11:47 Lidocaine (Lidocaine Patch 4%) 1 each ONCE ONCE TP 04/26/25 11:00 04/26/25 11:01 DC 04/26/25 11:46 Morphine Sulfate (morPHINE 2MG SYG) 2 mg ONCE ONCE IVP 04/26/25 11:00 04/26/25 12:03 DC Morphine Sulfate (morPHINE 4MG SYG) 2 mg ONCE ONCE IVP 04/26/25 12:30 04/26/25 12:31 Ondansetron HCl (zoFRAN 4MG INJ) 4 mg ONCE ONCE IVP 04/26/25 11:00 04/26/25 11:01 DC 04/26/25 11:46 Sodium Chloride 1,000 ml @ 1,000 mls/hr Q1H STAT IV 04/26/25 10:31 04/26/25 11:30 DC 04/26/25 11:46 Vital Signs Date Time Temp Pulse Resp B/P (MAP) Pulse Ox O2 Delivery O2 Flow Rate FiO2 04/26/25 10:24 97.9 108 20 122/77 99 Room Air Medical Decision Making MDM MDM: 39 Female with a history of rheumatoid arthritis, hypothyroidism, cholesterol and anemia coming in with multiple complaints. Patient states about a week ago she was at a green party was wearing a tight dress and states since then has a had right rib pain under her breast that radiates to her mid back. And also stating he has urinary symptoms. Patient states she was seen at [facility] couple of days ago and was given tramadol and where they did x-rays and told her everything was normal. Also the diagnosed with a UTI put her on Keflex. Patient states she is still having urinary tract symptoms in his states it is she still has a right rib pain even though she is taking her tramadol. Has not any trauma, denies any chest pain or chest discomfort.CBC shows white count of , hemoglobin of 11 hematocrit of 37. Chemistry unremarkable. Normal kidney function. UA shows evidence of urinary tract infection. Fluids, Rocephin and pain management given in the emergency room. Patient will be admitted for further inpatient therapy for her UTI. Differential diagnosis: Pyelonephritis, failed outpatient therapy, urinary tract infection, rib fracture, rib contusion Rationale: Tests considered and ordered secondary to shared decision making include: labs, ECG and radiology Previous outside records reviewed: Old ER visits. Risk of complication and/or morbidity or mortality of patient management: None Medications-Per medication reconciliation Need for hospitalization: Patient does meet criteria for hospitalization. Need for emergency major/minor surgery: No There are no social concerns with this patient. Prescription drug management Prescriptions will include symptomatic care Patient's prior external medical records from other ER visits were reviewed by me as indicated. Prior testing and results from previous visits were reviewed. Prior tests were taken into account with medical decision making and resource utilization, independent historian/historians were used to obtain complete medical history. I independently interpreted the test that were performed, results were reviewed by me and considered findings on radiology if ordered. Medical management and examination interpretation discussions were had by me with other qualified healthcare professionals as indicated for the patient's care. DX & DISP Disposition: Inpatient Decision to Admit Date: Apr 26, 2025 Decision to Admit Time: 12:23 Departure Impression: Primary Impression: Acute UTI Additional Impression: Failure of outpatient treatment Condition: Stable Referrals: SELF,REFERRAL (PCP) I have reviewed the case, and I agree with, Diagnosis and Plan GILLES KILGORE CNP Apr 26, 2025 10:47
[2025-04-26 10:53] LABS: IMMATURE GRANULOCYTE ABSOLUTE 0.05 K/uL (0-1); NUCLEATED RED BLOOD CELLS 0.0 % (0.0-0.19); PLATELET COUNT (AUTO) 402 K/uL (130-400); RED BLOOD CELL COUNT(AUTO) 3.99 MIL/uL (4.00-5.50); RED CELL DISTRIBUTION WIDTH 12.5 % (11.0-15.5); WHITE BLOOD COUNT (AUTO) 11.0 K/uL (4.8-10.8)
[2025-04-26 11:01] LABS: GLUCOSE, URINE (UA) 50 mg/dL (NEGATIVE); LEUKOCYTE ESTERASE ,URINE 500 Leu/uL (NEGATIVE); NITRATE,URINE NEGATIVE (NEGATIVE); OCCULT BLOOD,URINE +- (TRACE) (NEGATIVE)
[2025-04-26 11:02] LABS: CREATININE 0.8 mg/dL (0.5-1.0); GLOMERULAR FILTR. RATE CALC 96.0 mL/min (>90); GLUCOSE,RANDOM 93.0 mg/dL (70-105); SODIUM SERUM 138.0 mmol/L (136-145); UREA NITROGEN, BLOOD 10.0 mg/dL (7-18)
[2025-04-26 11:04] LABS: ADD UA MICROSCOPIC YES; APPEARANCE,URINE HAZY (CLEAR)
[2025-04-26 11:10] LABS: SQUAMOUS EPITHELIAL CELL,UR MOD /HPF (0-2)
[2025-04-26] MEDS: 0.9%NACL 1000ML 1,000 ML IV STA (11:46)
[2025-04-26] MEDS: LIDOCAINE 4% ADH..PATCH TP ONE (11:46)
--- NOTE | 2025-04-26 12:24 | HMCIMG ---
EXAM: CR right Rib and AP chest, 5 View. CLINICAL HISTORY: right rib pain COMPARISON: None provided. FINDINGS: LUNGS: The visualized lungs appear essentially clear. Heart size and pulmonary vessels are within normal limits. PLEURAL SPACES: No pneumothorax evident. No pleural effusions. BONES: There is concern for nondisplaced, age-indeterminate fracture at the posterior, lateral aspect of the right seventh rib. IMPRESSION: 1. Concern for nondisplaced, age-indeterminate fracture of the right seventh rib, posterior lateral aspect. No pneumothorax. /Markle
[2025-04-26] MEDS ORDERED: SENNOSIDES 8.6 MG TABLET PO PRN (12:30)
--- NOTE | 2025-04-26 12:39 | HP ---
[facility] HISTORY AND PHYSICAL Date of Service: Apr 26, 2025 Time of Service: 12:26 HISTORY OF PRESENT ILLNESS: [ ] Admission date 04/26/2025 PCP Self Chief complaint right rib pain UTI symptoms This is a 39-year-old female that presents in ED with chief complaints multiple complaints right rib pain given to patient wearing a tight garments dress for 8 hours. Her pain is on her right rib cage under her breasts that radiates to her mid back started about two weeks after she wore her tight dress. She denies any trauma, or recent falls. She does reports having injections ( steroids) per her RA specialist. ) Also reports no dysuria. She reports no fever chills hematuria. Patient reports she recently was seen at [facility] ER two days ago for UTI and was sent home on oral antibiotics. She is still having UTI symptoms uri burning cessation frequency. Patient has significant medical history RA, hypothyroidism, hyperlipidemia and anemia. ER workup was done urinalysis consistent with UTI. WBCs elevated 11. She denies any chest pain, shortness a breath, dizziness. REVIEW OF SYSTEMS a twelve point ROS was obtained all relevant positives documented otherwise ROS negative PAST MEDICAL HISTORY: [ ]Refer to HPI PAST SURGICAL HISTORY: [ ] Hysterectomy, tonsillectomy, cholecystectomy, gastric bypass with sleeve, thyroidectomy PAST SOCIAL HISTORY: [ ] Denies smoking tobacco products and alcohol use FAMILY HISTORY: [ ] Noncontributory Coded Allergies: emollient base (Unverified Allergy, Unknown, 02/13/24) tretinoin (Unverified Allergy, Unknown, 02/13/24) upadacitinib (Unverified Allergy, Unknown, SHORTNESS OF BREATH, 03/02/25) PHYSICAL EXAM GENERAL APPEARANCE: The patient is awake, alert, and oriented, in no acute cardiopulmonary distress. NEUROLOGICAL: Cranial nerves II-XII grossly intact. Motor is 5/5 in bilateral upper and lower extremities proximal to distal. No sensory deficits. HEENT: Face is symmetric. Pupils are equal and reactive. Extraocular movements are intact. NECK: Supple. No JVD. No thyromegaly. No submental, submandibular, pre- /postauricular, occipital or supraclavicular lymphadenopathy. CHEST: Normal chest expansion. No Telemetry. LUNGS: Absence of any rales, rhonchi or any wheezing. CARDIOVASCULAR: Regular. S1 and S2 normal. No appreciable rubs, murmurs or gallops. ABDOMEN: Soft, nontender, and nondistended. There is no rebound, voluntary guarding, or rigidity. : Deferred. No Sena. EXTREMITIES: Non-edematous and not cyanotic. No clubbing. Good capillary refill. SKIN: No skin breakdown. Vital Sign (Last 24 Hours) 04/26/25 10:24 Temp 97.9 Pulse 108 Resp 20 B/P (MAP) 122/77 Pulse Ox 99 O2 Delivery Room Air LABS: Laboratory: Test 04/26/25 10:55 04/26/25 10:44 Range/Units Urine Color LIGHT-YELLOW YELLOW Urine Appearance HAZY CLEAR Urine pH 6.5 5.0-8.0 Urine Specific [place] 1.014 1.001-1.031 Urine Protein NEGATIVE NEGATIVE mg/dL Urine Glucose (UA) 50 H NEGATIVE mg/dL Urine Ketones NEGATIVE NEGATIVE mg/dL Urine Occult Blood +- (TRACE) H NEGATIVE Urine Nitrate NEGATIVE NEGATIVE Urine Bilirubin NEGATIVE NEGATIVE mg/dL Urine Urobilinogen 0.2 0.2-1.0 mg/dL Urine Leukocyte Esterase 500 H NEGATIVE Crispin/uL Urine RBC 6-10 H 0-1 /HPF Urine WBC TNTC H 0-1 /HPF Urine Squamous Epithelial Cells MOD 0-2 /HPF Urine Bacteria FEW None Seen /HPF White Blood Count 11.0 H 4.8-10.8 K/uL Red Blood Count 3.99 L 4.00-5.50 MIL/uL Hemoglobin 11.9 L 12.0-16.0 g/dL Hematocrit 37.0 36-48 % Mean Corpuscular Volume 92.7 79-99 fL Mean Corpuscular Hemoglobin 29.8 27.0-33.0 pg Mean Corpuscular Hemoglobin Concent 32.2 32.0-36.0 g/dL Red Cell Distribution Width 12.5 11.0-15.5 % Platelet Count 402 H 130-400 K/uL Mean Platelet Volume 10.3 7.5-10.5 fL Immature Granulocyte % (Auto) 0.5 0-1 % Neutrophils (%) (Auto) 81.0 H 40.0-77.0 % Lymphocytes (%) (Auto) 11.6 L 21.0-51.0 % Monocytes (%) (Auto) 6.2 3.0-13.0 % Eosinophils (%) (Auto) 0.5 0.0-8.0 % Basophils (%) (Auto) 0.2 0.0-5.0 % Neutrophils # (Auto) 8.9 H 1.8-7.7 K/uL Lymphocytes # (Auto) 1.3 1.0-4.8 K/uL Monocytes # (Auto) 0.7 0.1-1.0 K/uL Eosinophils # (Auto) 0.06 0.00-0.70 K/uL Basophils # (Auto) 0.02 0.00-0.20 K/uL Absolute Immature Granulocyte (auto 0.05 0-1 K/uL Nucleated Red Blood Cells 0.0 0.0-0.19 % Sodium Level 138 136-145 mmol/L Potassium Level 3.8 3.5-5.1 mmol/L Chloride Level 104 101-111 mmol/L Carbon Dioxide Level 29 21-32 mmol/L Blood Urea Nitrogen 10 7-18 mg/dL Creatinine 0.8 0.5-1.0 mg/dL Glomerular Filtration Rate Calc 96 >90 mL/min Random Glucose 93 70-105 mg/dL Total Calcium 8.6 8.5-10.1 mg/dL Current Medications Medications (Trade) Dose Ordered Sig/Jennifer Route PRN Reason Start Time Stop Time Status Last Admin Dose Admin Sodium Chloride 1,000 ml @ 1,000 mls/hr Q1H STAT IV 04/26/25 10:31 04/26/25 11:30 DC 04/26/25 11:46 1,000 MLS/HR DIAGNOSTICS / RADIOLOGY: [ ] ASSESSMENT: intractable right rib cage pain POA UTI failed outpatient treatment:POA Leukocytosis secondary to steroids use POA Chronic anemia POA chronic use steroids POA hypothyroidism POA Chronic problems Rheumatoid arthritis, hypothyroidism, cholesterol, anemia. PLAN: [ ] Admit: medical Surgical floor condition: Guarded Status: Full code IVF: NS at 75 mL/hour Imaging CT chest without contrast Antibiotics: Rocephin 1 g every 24 hours Microbiology urine cultures in process OB x1 anemia workup: will monitor H/H trends to keep Hgb above 7.0 transfuse as needed will get a Vitamin D level given she on chronic use steroids. Labs CBC CMP magnesium and TSH, AIc Replace electrolytes as needed as per protocol to keep potassium above 4.0 magnesium 2.0. PRN: MEDICATIONS Tylenol 650 mg po every 4 hrs for fever zofran 4 mg IV every 6 hrs for n/v senna one tab bid PRN Hydralazine 5 mg IV every 4 hrs systolic pressure > 160 Pain management: Morphine 2 mg IV as needed every 4 hours Supportive measures: DVT ppx, GI ppx all questions answered time spent: > 35 min Supervising MD: Dr. Nathan brooks/julia This document was generated in part using voice recognition software, occasional wrong word or sound alike substitutions may have occurred due to the inherent limitations of voice recognition software. Read the chart carefully and recognize using context, where the substitutions have occurred. Although every effort was made to edit the content, welcome center attendant and typing errors may occur ADVANCED CARE PLANNING 1. Which of the following were discussed? Hospice Care - Yes / No Therapeutic options - Yes / No Advance Directives - Yes / No Other discussions - 2. Discussed with who? 3. Voluntary nature of this service was explained to the patient? Yes / No 4. Amount of time spent - 5. Reviewed by Physician? (if this service was performed by NPP) Yes / No ATTESTATION BY PHYSICIAN I have seen and examined the patient. I reviewed the documentation, medical decision making, and treatment plan as noted by the mid-level provider above. I agree with the findings and plan of care. SURESH BOYER MD, [facility] Apr 26, 2025 12:39
--- NOTE | 2025-04-26 13:17 | NUR ---
PT JUST PLACED IN MY ED BED 15 BY JOHNNY ANDREA
--- NOTE | 2025-04-26 13:40 | NUR ---
REPORT JUST NOW RECEIVED FROM JOHNNY ANDREA. PER JOHNNY, JOSH PARRISH HAS ALREADY BEEN IN TO SEE THE PT.
--- NOTE | 2025-04-26 13:42 | NUR ---
PT CURRENTLY BEING PICKED UP BY CT TRANSPORTER
[2025-04-26 13:46] LABS: % IRON SATURATION 31.8 % (22-44); IRON, SERUM 86.0 mcg/dL (50-170)
[2025-04-26 13:47] LABS: INR 0.95 (0.85-1.15)
--- NOTE | 2025-04-26 13:53 | NUR ---
PT JUST NOW RETURNED FROM CT SCAN VIA STRETCHER BY CT TRANSPORTER.
--- NOTE | 2025-04-26 14:51 | NUR ---
PT STATES THE LIDOCAINE PATCH APPLIED EARLIER IS NOT WORKING. SHE STATES SHE HAS DEALT W/PAIN FOR 11YRS NOW AND NSAIDS/STERIODS AND PATCHES DO NOT SEEM TO WORK FOR HER CHRONIC PAIN/DISCOMFORT.
--- NOTE | 2025-04-26 14:53 | NUR ---
STILL NO REPORT ON CT CHEST
[2025-04-26] MEDS ORDERED: GLUCAGON 1MG KIT 1 MG ML IM PRN (15:30)
[2025-04-26] MEDS ORDERED: DEXTROSE 50%-WATER 50 ML DISP.SYRIN IV PRN (15:30)
--- NOTE | 2025-04-26 16:12 | NUR ---
DCP:HOME Pt currently lives at home with her children. Pt has a walker that she uses to ambulate. Pt states that she has a provider that goes to her home 24.5 hrs a week to assist with all ADLs, home management, and meals. PCP is Dr. Akila Hannah and uses [facility] for any RX needs. At DC pt will want to go home and family can assist with transportation.
--- NOTE | 2025-04-26 19:09 | NUR ---
REPORT ENDORSED TO ELEN ANDREA
--- NOTE | 2025-04-26 21:57 | NUR ---
PATIENT DID NOT BRING HOME MEDICATIONS
[2025-04-27] VITALS (7 sets, daily range): BP systolic 103–115; BP diastolic 61–80; PULSE 88–120; RESP 16–18; TEMP 97.3–98; O2SAT 96
[2025-04-27] MEDS ORDERED: LIOT25TA12 PO (00:12)
[2025-04-27] MEDS ORDERED: ZOLP-685 PO (00:12)
[2025-04-27] MEDS ORDERED: CETI10TA57 PO (00:12)
[2025-04-27] MEDS ORDERED: FAMO40TA7 PO (00:12)
[2025-04-27] MEDS ORDERED: GALC120S SQ (00:12)
[2025-04-27] MEDS ORDERED: TIRZ15PE SQ (00:12)
[2025-04-27] MEDS ORDERED: LEVO150C5 PO (00:12)
--- NOTE | 2025-04-27 01:24 | HMCIMG ---
EXAM: CT Chest Without Intravenous Contrast. CLINICAL HISTORY: Right-sided limb pain for 2 weeks. TECHNIQUE: Axial CT images of the chest were acquired without intravenous contrast. Reformatted/MPR images were performed. Radiation dose: CTDIvol = 5.6 mGy, DLP = 198.10 mGy cm. CONTRAST: Without. COMPARISON: Right rib radiographs dated 04/26/2025, performed earlier on the same day at 10:25 hours. FINDINGS: LUNGS: No pulmonary mass. No focal airspace consolidation. No pneumothorax is seen. The lung parenchyma is grossly unremarkable on the limited chest field imaged. PLEURAL SPACES: No pleural effusion. HEART AND MEDIASTINUM: No cardiomegaly. No significant pericardial effusion. LYMPH NODES: No lymphadenopathy. CHEST WALL AND UPPER ABDOMEN: Cortical irregularity is noted along the inner cortex of the angle of the right seventh rib, series 7, image 54/104. No adjacent soft tissue component is seen. The gallbladder is surgically absent. Evidence of prior gastric bypass surgery is noted, with appropriately positioned gastrojejunal anastomosis. BONES: Cortical irregularity is noted along the inner cortex of the angle of the right seventh rib, series 7, image 54/104. No adjacent soft tissue component is seen. KIDNEYS: Multiple left renal upper polar calculi are seen, the largest measuring 1 cm with an average attenuation of 400 HU. No hydronephrosis is identified. SOFT TISSUES: Unremarkable. IMPRESSION: 1. Cortical irregularity along the inner cortex of the angle of the right seventh rib, without adjacent soft tissue component. Findings are similar to the prior right rib radiographs dated 04/26/2025, performed earlier on the same day and may represent age indeterminate fracture. /[place]
[2025-04-27 05:01] LABS: IMMATURE GRANULOCYTE ABSOLUTE 0.04 K/uL (0-1); NUCLEATED RED BLOOD CELLS 0.0 % (0.0-0.19); PLATELET COUNT (AUTO) 324 K/uL (130-400); RED BLOOD CELL COUNT(AUTO) 3.48 MIL/uL (4.00-5.50); RED CELL DISTRIBUTION WIDTH 12.5 % (11.0-15.5); WHITE BLOOD COUNT (AUTO) 8.6 K/uL (4.8-10.8)
[2025-04-27 05:32] LABS: ASPARTATE AMINOTRANSFERASE 37 U/L (10-37); CREATININE 0.9 mg/dL (0.5-1.0); GLOMERULAR FILTR. RATE CALC 83 mL/min (>90); GLUCOSE,RANDOM 141 mg/dL (70-105); LDL DIRECT 29 mg/dL (0-99); SODIUM SERUM 141 mmol/L (136-145); TOTAL PROTEIN, SERUM 5.9 g/dL (6.0-8.3); UREA NITROGEN, BLOOD 14 mg/dL (7-18)
--- NOTE | 2025-04-27 15:29 | PN ---
[facility] PROGRESS NOTE Date of Service: Apr 27, 2025 Time of Service: 14:54 SUBJECTIVE: This is a 39-year-old female that presents in ED with chief complaints multiple complaints right rib pain given to patient wearing a tight garments dress for 8 hours. Her pain is on her right rib cage under her breasts that radiates to her mid back started about two weeks after she wore her tight dress. She denies any trauma, or recent falls. She does reports having injections ( steroids) per her RA specialist. ) Also reports no dysuria. She reports no fever chills hematuria. Patient reports she recently was seen at [facility] ER two days ago for UTI and was sent home on oral antibiotics. She is still having UTI symptoms uri burning cessation frequency. Patient has significant medical history RA, hypothyroidism, hyperlipidemia and anemia. ER workup was done urinalysis consistent with UTI. WBCs elevated 11. She denies any chest pain, shortness a breath, dizziness. 04/27/2025: She was evaluated at the bedside this morning. No overnight event. She is hemodynamically stable labs remarkable for hemoglobin 10.5, TSH less than 0.01. Urinalysis suggestive of UTI but urine culture negative which can be secondary to outpatient antibiotics use. We started her on Rocephin 1 g daily. We will also get ultrasound kidney to rule out predisposing condition for rec urrent UTI. Chest x-ray revealed right 7th rib fracture which can be the possible cause for her right lateral chest pain. We will consider optimum pain management. She could have low-impact fracture probably because of low-density bone secondary to steroid use, rheumatoid arthritis, history of thyrotoxicosis. We will consider getting DEXA scan outpatient. She is on thyroid replacement post thyroidectomy. TSH was less than 0.01 so we consider decreasing the dose of levothyroxine from 150 mcg to 125 mcg. We will continue 25 mcg of leothyronine. She do have a history of bipolar disorder. As per the patient she is on lamotrigine, quetiapine and fluoxetine. Rest of the plan as discussed below REVIEW OF SYSTEMS a twelve point ROS was obtained all relevant positives documented otherwise ROS negative PHYSICAL EXAM GENERAL APPEARANCE: The patient is awake, alert, and oriented, in no acute cardiopulmonary distress. NEUROLOGICAL: Cranial nerves II-XII grossly intact. Motor is 5/5 in bilateral upper and lower extremities proximal to distal. No sensory deficits. HEENT: Face is symmetric. Pupils are equal and reactive. Extraocular movements are intact. NECK: Supple. No JVD. No thyromegaly. No submental, submandibular, pre- /postauricular, occipital or supraclavicular lymphadenopathy. CHEST: Normal chest expansion. No Telemetry. LUNGS: Absence of any rales, rhonchi or any wheezing. CARDIOVASCULAR: Regular. S1 and S2 normal. No appreciable rubs, murmurs or gallops. ABDOMEN: Soft, nontender, and nondistended. There is no rebound, voluntary guarding, or rigidity. : Deferred. No Sena. EXTREMITIES: Non-edematous and not cyanotic. No clubbing. Good capillary refill. SKIN: No skin breakdown. Vital Signs (last 8hr) Date Time Temp Pulse Resp B/P (MAP) Pulse Ox O2 Delivery O2 Flow Rate FiO2 04/27/25 12:00 98.1 100 18 113/69 96 Room Air 04/27/25 07:54 98.1 89 16 107/64 96 Room Air LABS: Laboratory: Test 04/27/25 11:24 04/27/25 04:48 04/26/25 10:55 04/26/25 10:44 Range/Units Whole Blood Glucose 64 #L 70-110 MG/DL White Blood Count 8.6 4.8-10.8 K/uL Red Blood Count 3.48 L 4.00-5.50 MIL/uL Hemoglobin 10.5 L 12.0-16.0 g/dL Hematocrit 32.6 L 36-48 % Mean Corpuscular Volume 93.7 79-99 fL Mean Corpuscular Hemoglobin 30.2 27.0-33.0 pg Mean Corpuscular Hemoglobin Concent 32.2 32.0-36.0 g/dL Red Cell Distribution Width 12.5 11.0-15.5 % Platelet Count 324 130-400 K/uL Mean Platelet Volume 10.4 7.5-10.5 fL Immature Granulocyte % (Auto) 0.5 0-1 % Neutrophils (%) (Auto) 69.3 40.0-77.0 % Lymphocytes (%) (Auto) 19.5 L 21.0-51.0 % Monocytes (%) (Auto) 8.9 3.0-13.0 % Eosinophils (%) (Auto) 1.4 0.0-8.0 % Basophils (%) (Auto) 0.4 0.0-5.0 % Neutrophils # (Auto) 5.9 1.8-7.7 K/uL Lymphocytes # (Auto) 1.7 1.0-4.8 K/uL Monocytes # (Auto) 0.8 0.1-1.0 K/uL Eosinophils # (Auto) 0.12 0.00-0.70 K/uL Basophils # (Auto) 0.03 0.00-0.20 K/uL Absolute Immature Granulocyte (auto 0.04 0-1 K/uL Nucleated Red Blood Cells 0.0 0.0-0.19 % Sodium Level 141 136-145 mmol/L Potassium Level 4.3 3.5-5.1 mmol/L Chloride Level 107 101-111 mmol/L Carbon Dioxide Level 27 21-32 mmol/L Blood Urea Nitrogen 14 7-18 mg/dL Creatinine 0.9 0.5-1.0 mg/dL Glomerular Filtration Rate Calc 83 >90 mL/min Random Glucose 141 #H 70-105 mg/dL Total Calcium 8.3 L 8.5-10.1 mg/dL Magnesium Level 2.10 1.80-2.40 mg/dL Total Bilirubin 0.2 0.2-1.0 mg/dL Aspartate Amino Transf (AST/SGOT) 37 10-37 U/L Alanine Aminotransferase (ALT/SGPT) 62 12-78 U/L Alkaline Phosphatase 82 50-136 U/L Total Protein 5.9 L 6.0-8.3 g/dL Albumin 2.9 L 3.5-5.0 g/dL Triglycerides Level 65 30-200 mg/dL Cholesterol Level 105 <200 mg/dL LDL Cholesterol 29 0-99 mg/dL HDL Cholesterol 62 35-85 mg/dL Thyroid Stimulating Hormone (TSH) < 0.01 L 0.36-3.74 uIU/mL Urine Color LIGHT-YELLOW YELLOW Urine Appearance HAZY CLEAR Urine pH 6.5 5.0-8.0 Urine Specific Spencer 1.014 1.001-1.031 Urine Protein NEGATIVE NEGATIVE mg/dL Urine Glucose (UA) 50 H NEGATIVE mg/dL Urine Ketones NEGATIVE NEGATIVE mg/dL Urine Occult Blood +- (TRACE) H NEGATIVE Urine Nitrate NEGATIVE NEGATIVE Urine Bilirubin NEGATIVE NEGATIVE mg/dL Urine Urobilinogen 0.2 0.2-1.0 mg/dL Urine Leukocyte Esterase 500 H NEGATIVE Crispin/uL Urine RBC 6-10 H 0-1 /HPF Urine WBC TNTC H 0-1 /HPF Urine Squamous Epithelial Cells MOD 0-2 /HPF Urine Bacteria FEW None Seen /HPF Urine HCG, Qualitative NEGATIVE NEGATIVE Prothrombin Time 10.1 9.6-11.6 SEC Prothromb Time International Ratio 0.95 0.85-1.15 Hemoglobin A1c 5.6 4.0-6.0 % Estimated Average Glucose (eAG) 114 70-126 mg/dL Iron Level 86 50-170 mcg/dL Total Iron Binding Capacity 270 250-450 mcg/dL Percent Iron Saturation 31.8 22-44 % Current Medications Medications (Trade) Dose Ordered Sig/Jennifer Route PRN Reason Start Time Stop Time Status Last Admin Dose Admin Acetaminophen (TYLenol 325MG TAB) 650 mg Q4H PRN PO TEMPERATURE GREATER THAN 101.5 04/26/25 12:30 05/26/25 12:29 Acetaminophen/ Codeine Phosphate (TYLenol-coDEINE TAB) 1 tab Q6H PRN PO MODERATE PAIN (4-6) 04/26/25 12:30 05/26/25 12:29 Ceftriaxone Sodium (ROCEphine 1G INJ) 1 gm Q24H IVPB 04/27/25 12:30 05/07/25 12:29 04/27/25 12:57 1 GM Dextrose (D50w) 50 ml AD PRN IV HYPOGLYCEMIA PROTOCOL 04/26/25 15:30 05/26/25 15:29 Glucagon (Glucagon 1mg Kit) 1 mg AD PRN IM HYPOGLYCEMIA PROTOCOL 04/26/25 15:30 05/26/25 15:29 Insulin Human Regular (humuLIN R 100 UNIT/ML 3ML) INSULIN SLIDING SCAL... ACHS SQ 04/26/25 16:30 05/26/25 16:29 Levothyroxine Sodium (SYNTHroid 125MCG TAB) 125 mcg SYN PO 04/28/25 06:30 05/28/25 06:29 Levothyroxine Sodium (SYNTHroid 150MCG TAB) 150 mcg SYN PO 04/27/25 06:30 04/27/25 10:47 DC 04/27/25 06:23 150 MCG Morphine Sulfate (morPHINE 2MG SYG) 2 mg Q4H PRN IVP SEVERE PAIN (7-10) 04/26/25 13:30 05/03/25 13:29 04/27/25 11:11 2 MG Ondansetron HCl (zoFRAN 4MG INJ) 4 mg Q6H PRN IVP NAUSEA/VOMITING 04/26/25 12:30 05/26/25 12:29 04/26/25 17:08 4 MG Sennosides (Senna) 1 tab BID PRN PO CONSTIPATION 04/26/25 12:30 04/26/25 13:33 DC Sennosides (Senna) 1 tab BID PRN PO CONSTIPATION 04/26/25 13:30 05/26/25 13:29 Sodium Chloride 1,000 ml @ 1,000 mls/hr Q1H STAT IV 04/26/25 10:31 04/26/25 11:30 DC 04/26/25 11:46 1,000 MLS/HR Zolpidem Tartrate (AmbIEN) 10 mg HS PRN PO INSOMNIA 04/27/25 01:30 05/27/25 01:29 DIAGNOSTICS / RADIOLOGY: [ ] ASSESSMENT: Intractable right lateral chest pain secondary to right 7th rib fracture, POA UTI failed outpatient treatment:POA Leukocytosis POA Chronic anemia POA chronic use steroids POA Rheumatoid arthritis POA Hypothyroidism POA BPAD POA PLAN: #Intractable right lateral chest pain secondary to right 7th rib fracture, POA -she presented with the pain in her right lateral chest which she attribute secondary to titrate case she wore weeks back. -chest x-ray revealed nondisplaced indeterminate fracture of right 7th rib , posterior lateral aspect. -chest CT revealed cortical irregularity along the inner cortex of the ankle of the right , without adjacent soft tissue component representing age- indeterminate fracture. -pain management with morphine PRN. Incentive spirometry -we will get PTH, vitamin-D. Low Trauma rib fracture can be presentation of osteoporosis which can happen in this patient with a long history of steroid use, rheumatoid arthritis status post bariatric surgery and history of thyrotoxicosis. We will get outpatient DEXA scan for her #UTI failed outpatient treatment, POA #Leukocytosis, POA -patient being treated as an outpatient for UTI with Keflex. She do have a history of recurrent UTI. UA suggestive of infection. Urine culture negative -Antibiotics: Rocephin 1 g every 24 hours -we will consider getting renal ultrasound to look for predisposing conditions for recurrent UTI. # chronic anemia POA -hemoglobin 10.5. Iron 86, TIBC 270, saturation 31.8%. -looks like anemia with multifactorial with possible contribution from rheumatoid arthritis -we will monitor hemoglobin. #Hypothyroidism POA -she has a history of thyroidectomy for thyrotoxicosis. She is on levothyroxine 150 mcg at her home along with leothyronine 25 mcg. She sees Endocrinology as outpatient. Her TSH is less than 0.01 -we will consider decreasing levothyroxine to 125 mcg daily and continue leothyronine 25 mcg #Rheumatoid arthritis POA #Chronic use steroids POA -patient is being treated with rituximab two doses of injection every six- month. She also takes prednisolone 5 mg for 3 days for the flare-up -she visits the Rheumatology. # BPAD POA -We will continue quetiapine, lamotrigine and fluoxetine DVT prophylaxis Lovenox GI prophylaxis famotidine ATTESTATION BY PHYSICIAN I have seen and examined the patient. I reviewed the documentation, medical decision making, and treatment plan as noted by the resident physician above. I agree with the findings and plan of care. Kin Valladares IV, MD, SUNIL MD Apr 27, 2025 15:29
[2025-04-27] MEDS: LIDOCAINE 4% ADH..PATCH TP ONE (15:46)
[2025-04-27] MEDS: SENNOSIDES 8.6 MG TABLET PO PRN (17:31)
--- NOTE | 2025-04-27 22:47 | HMCIMG ---
EXAM Renal ultrasound. CLINICAL HISTORY Recurrent urinary tract infections. History of nephrolithiasis. COMPARISON: None. TECHNIQUE Gonzales-scale and limited color Doppler ultrasound evaluation of the kidneys and urinary bladder was performed. FINDINGS RIGHT KIDNEY The right kidney measures approximately 10.4 x 4.2 x 4.4 cm. Renal cortical thickness and echogenicity are preserved. No echogenic focus with posterior acoustic shadowing is identified. No hydronephrosis is present. LEFT KIDNEY The left kidney measures approximately 9.4 x 3.9 x 4.1 cm. Renal cortical thickness and echogenicity are preserved. Multiple echogenic foci are identified within the collecting system, the largest measuring approximately 5 x 5 mm, demonstrating posterior acoustic shadowing, compatible with nonobstructing renal calculi. No hydronephrosis is identified. URINARY BLADDER The urinary bladder wall measures approximately 3 mm in thickness and is within normal limits for the degree of distention. No intraluminal mass or calculus is identified. IMPRESSION * Nonobstructing left renal calculi, measuring up to 5 x 4 mm, without associated hydronephrosis. * Normal sonographic appearance of the right kidney. * No sonographic evidence of obstructive uropathy. In accordance with ACR Appropriateness Criteria, urologic consultation and clinical correlation are recommended. If symptoms persist or there is concern for interval stone migration or obstruction, noncontrast CT of the abdomen and pelvis may be considered for further evaluation. /[place]
[2025-04-28] VITALS (7 sets, daily range): BP systolic 89–117; BP diastolic 52–77; PULSE 97–105; RESP 16–18; TEMP 97.3–98.3; O2SAT 97
[2025-04-28 04:20] LABS: IMMATURE GRANULOCYTE ABSOLUTE 0.06 K/uL (0-1); NUCLEATED RED BLOOD CELLS 0.0 % (0.0-0.19); PLATELET COUNT (AUTO) 332 K/uL (130-400); RED BLOOD CELL COUNT(AUTO) 3.55 MIL/uL (4.00-5.50); RED CELL DISTRIBUTION WIDTH 12.7 % (11.0-15.5); WHITE BLOOD COUNT (AUTO) 10.3 K/uL (4.8-10.8)
[2025-04-28 04:44] LABS: CREATININE 0.8 mg/dL (0.5-1.0); GLOMERULAR FILTR. RATE CALC 96.0 mL/min (>90); GLUCOSE,RANDOM 53.0 mg/dL (70-105); SODIUM SERUM 143.0 mmol/L (136-145); UREA NITROGEN, BLOOD 18.0 mg/dL (7-18)
[2025-04-28] MEDS: FAMOTIDINE 20MG TAB PO SCH (08:42)
[2025-04-28] MEDS: ENOXAPARIN SODIUM 40 MG/0.4 ML SYRINGE SQ SCH (08:42)
[2025-04-28] MEDS: LAMOTRIGINE 25 MG PO SCH (08:42)
[2025-04-28] MEDS ORDERED: SUMATRIPTAN SUCCINATE 100 MG PO PRN (09:00)
--- NOTE | 2025-04-28 17:51 | PN ---
[facility] PROGRESS NOTE Date of Service: Apr 28, 2025 Time of Service: 17:14 SUBJECTIVE: This is a 39-year-old female that presents in ED with chief complaints multiple complaints right rib pain given to patient wearing a tight garments dress for 8 hours. Her pain is on her right rib cage under her breasts that radiates to her mid back started about two weeks after she wore her tight dress. She denies any trauma, or recent falls. She does reports having injections ( steroids) per her RA specialist. ) Also reports no dysuria. She reports no fever chills hematuria. Patient reports she recently was seen at [facility] ER two days ago for UTI and was sent home on oral antibiotics. She is still having UTI symptoms uri burning cessation frequency. Patient has significant medical history RA, hypothyroidism, hyperlipidemia and anemia. ER workup was done urinalysis consistent with UTI. WBCs elevated 11. She denies any chest pain, shortness a breath, dizziness. 04/27/2025: She was evaluated at the bedside this morning. No overnight event. She is hemodynamically stable labs remarkable for hemoglobin 10.5, TSH less than 0.01. Urinalysis suggestive of UTI but urine culture negative which can be secondary to outpatient antibiotics use. We started her on Rocephin 1 g daily. We will also get ultrasound kidney to rule out predisposing condition for rec urrent UTI. Chest x-ray revealed right 7th rib fracture which can be the possible cause for her right lateral chest pain. We will consider optimum pain management. She could have low-impact fracture probably because of low-density bone secondary to steroid use, rheumatoid arthritis, history of thyrotoxicosis. We will consider getting DEXA scan outpatient. She is on thyroid replacement post thyroidectomy. TSH was less than 0.01 so we consider decreasing the dose of levothyroxine from 150 mcg to 125 mcg. We will continue 25 mcg of leothyronine. She do have a history of bipolar disorder. As per the patient she is on lamotrigine, quetiapine and fluoxetine. Rest of the plan as discussed below 04/28/2025: She was evaluated at the bedside this morning. No overnight event. She is AAO x3. she said her lateral right chest pain is better with the pain medications. He is hemodynamically stable with the labs remarkable for WBC 10.3, hemoglobin 10.7, calcium, TSH less than 0.01. She is being treated for refractory UTI and intractable chest pain secondary to her right rib fracture. She is currently on Rocephin1 g daily, levothyroxine 125 mcg, leothyronine 25 mcg. Ultrasound kidney revealed 5 X4mm left nonobstructing calculi. We will continue the antibiotic and chest pain management. Rest of the plan as discussed below REVIEW OF SYSTEMS a twelve point ROS was obtained all relevant positives documented otherwise ROS negative PHYSICAL EXAM GENERAL APPEARANCE: The patient is awake, alert, and oriented, in no acute cardiopulmonary distress. NEUROLOGICAL: Cranial nerves II-XII grossly intact. Motor is 5/5 in bilateral upper and lower extremities proximal to distal. No sensory deficits. HEENT: Face is symmetric. Pupils are equal and reactive. Extraocular movements are intact. NECK: Supple. No JVD. No thyromegaly. No submental, submandibular, pre- /postauricular, occipital or supraclavicular lymphadenopathy. CHEST: Normal chest expansion. No Telemetry. LUNGS: Absence of any rales, rhonchi or any wheezing. CARDIOVASCULAR: Regular. S1 and S2 normal. No appreciable rubs, murmurs or gallops. ABDOMEN: Soft, nontender, and nondistended. There is no rebound, voluntary guarding, or rigidity. : Deferred. No Sena. EXTREMITIES: Non-edematous and not cyanotic. No clubbing. Good capillary refill. SKIN: No skin breakdown. Vital Signs (last 8hr) Date Time Temp Pulse Resp B/P (MAP) Pulse Ox O2 Delivery O2 Flow Rate FiO2 04/28/25 16:00 98.2 104 18 117/77 100 Room Air 04/28/25 11:39 97.5 105 18 105/72 97 Room Air LABS: Laboratory: Test 04/28/25 15:11 04/28/25 04:09 04/27/25 15:26 04/27/25 11:44 Range/Units Whole Blood Glucose 80 70-110 MG/DL White Blood Count 10.3 4.8-10.8 K/uL Red Blood Count 3.55 L 4.00-5.50 MIL/uL Hemoglobin 10.7 L 12.0-16.0 g/dL Hematocrit 33.4 L 36-48 % Mean Corpuscular Volume 94.1 79-99 fL Mean Corpuscular Hemoglobin 30.1 27.0-33.0 pg Mean Corpuscular Hemoglobin Concent 32.0 32.0-36.0 g/dL Red Cell Distribution Width 12.7 11.0-15.5 % Platelet Count 332 130-400 K/uL Mean Platelet Volume 10.1 7.5-10.5 fL Immature Granulocyte % (Auto) 0.6 0-1 % Neutrophils (%) (Auto) 70.1 40.0-77.0 % Lymphocytes (%) (Auto) 17.4 L 21.0-51.0 % Monocytes (%) (Auto) 10.2 3.0-13.0 % Eosinophils (%) (Auto) 1.4 0.0-8.0 % Basophils (%) (Auto) 0.3 0.0-5.0 % Neutrophils # (Auto) 7.3 1.8-7.7 K/uL Lymphocytes # (Auto) 1.8 1.0-4.8 K/uL Monocytes # (Auto) 1.1 H 0.1-1.0 K/uL Eosinophils # (Auto) 0.14 0.00-0.70 K/uL Basophils # (Auto) 0.03 0.00-0.20 K/uL Absolute Immature Granulocyte (auto 0.06 0-1 K/uL Nucleated Red Blood Cells 0.0 0.0-0.19 % Sodium Level 143 136-145 mmol/L Potassium Level 3.7 3.5-5.1 mmol/L Chloride Level 109 101-111 mmol/L Carbon Dioxide Level 26 21-32 mmol/L Blood Urea Nitrogen 18 7-18 mg/dL Creatinine 0.8 0.5-1.0 mg/dL Glomerular Filtration Rate Calc 96 >90 mL/min Random Glucose 53 #L 70-105 mg/dL Total Calcium 8.0 L 8.5-10.1 mg/dL Ionized Calcium 1.10 L 1.15-1.33 MMOL/L Parathyroid Hormone (Intact) 67.9 15-65 pg/mL Test 04/27/25 04:48 Range/Units Magnesium Level 2.10 1.80-2.40 mg/dL Total Bilirubin 0.2 0.2-1.0 mg/dL Aspartate Amino Transf (AST/SGOT) 37 10-37 U/L Alanine Aminotransferase (ALT/SGPT) 62 12-78 U/L Alkaline Phosphatase 82 50-136 U/L Total Protein 5.9 L 6.0-8.3 g/dL Albumin 2.9 L 3.5-5.0 g/dL Triglycerides Level 65 30-200 mg/dL Cholesterol Level 105 <200 mg/dL LDL Cholesterol 29 0-99 mg/dL HDL Cholesterol 62 35-85 mg/dL Thyroid Stimulating Hormone (TSH) < 0.01 L 0.36-3.74 uIU/mL Current Medications Medications (Trade) Dose Ordered Sig/Jennifer Route PRN Reason Start Time Stop Time Status Last Admin Dose Admin Acetaminophen (TYLenol 325MG TAB) 650 mg Q4H PRN PO TEMPERATURE GREATER THAN 101.5 04/26/25 12:30 05/26/25 12:29 Acetaminophen/ Codeine Phosphate (TYLenol-coDEINE TAB) 1 tab Q6H PRN PO MODERATE PAIN (4-6) 04/26/25 12:30 05/26/25 12:29 Atorvastatin Calcium (LIPItor 20MG) 20 mg DAILY PO 04/28/25 09:00 05/28/25 08:59 04/28/25 08:54 20 MG Ceftriaxone Sodium (ROCEphine 1G INJ) 1 gm Q24H IVPB 04/27/25 12:30 05/07/25 12:29 04/28/25 13:18 1 GM Dextrose (D50w) 50 ml AD PRN IV HYPOGLYCEMIA PROTOCOL 04/26/25 15:30 05/26/25 15:29 Enoxaparin Sodium (Lovenox) 40 mg DAILY SQ 04/28/25 09:00 05/28/25 08:59 04/28/25 08:42 40 MG Famotidine (Pepcid 20mg Tab) 20 mg DAILY PO 04/28/25 09:00 05/28/25 08:59 04/28/25 08:42 20 MG Fluoxetine HCl (FLUoxetine HCL 20 MG CAPSULE) 20 mg DAILY PO 04/28/25 09:00 05/28/25 08:59 04/28/25 08:42 20 MG Glucagon (Glucagon 1mg Kit) 1 mg AD PRN IM HYPOGLYCEMIA PROTOCOL 04/26/25 15:30 05/26/25 15:29 Home Med (Home Medication) (Liothyronine Sodium 25MCG TAB) DAILY PO 04/28/25 09:00 05/28/25 08:59 Home Med (Home Medication) (Rituximab-Abbs (Truxima) 1,000 MG)... AD IV 04/28/25 09:00 05/28/25 08:59 Insulin Human Regular (humuLIN R 100 UNIT/ML 3ML) INSULIN SLIDING SCAL... ACHS SQ 04/26/25 16:30 05/26/25 16:29 Ketorolac Tromethamine (toRADol) 15 mg BID IV 04/28/25 21:00 05/03/25 20:59 UNV Lamotrigine (LAMIctal 25 MG TAB) 50 mg DAILY PO 04/28/25 09:00 05/28/25 08:59 04/28/25 08:42 50 MG Levothyroxine Sodium (SYNTHroid 125MCG TAB) 125 mcg SYN PO 04/28/25 06:30 05/28/25 06:29 04/28/25 06:19 125 MCG Levothyroxine Sodium (SYNTHroid 150MCG TAB) 150 mcg SYN PO 04/27/25 06:30 04/27/25 10:47 DC 04/27/25 06:23 150 MCG Miscellaneous Medication (Sumatriptan Succinate ) 100 mg DAILY PRN PO MIGRAINE 04/28/25 09:00 04/28/25 08:56 DC Morphine Sulfate (morPHINE 2MG SYG) 2 mg Q4H PRN IVP SEVERE PAIN (7-10) 04/26/25 13:30 05/03/25 13:29 04/28/25 13:22 2 MG Ondansetron HCl (zoFRAN 4MG INJ) 4 mg Q6H PRN IVP NAUSEA/VOMITING 04/26/25 12:30 05/26/25 12:29 04/26/25 17:08 4 MG Quetiapine Fumarate (SEROquel 25 mg TAB) 50 mg HS PO 04/27/25 21:00 05/27/25 20:59 04/27/25 21:48 50 MG Sennosides (Senna) 1 tab BID PRN PO CONSTIPATION 04/26/25 12:30 04/26/25 13:33 DC Sennosides (Senna) 1 tab BID PRN PO CONSTIPATION 04/26/25 13:30 05/26/25 13:29 04/28/25 15:51 1 TAB Sodium Chloride 1,000 ml @ 1,000 mls/hr Q1H STAT IV 04/26/25 10:31 04/26/25 11:30 DC 04/26/25 11:46 1,000 MLS/HR Sumatriptan Succinate (ImiTREX) 100 mg DAILY PRN PO MIGRAINE 04/28/25 09:00 05/28/25 08:59 Zolpidem Tartrate (AmbIEN) 10 mg HS PRN PO INSOMNIA 04/27/25 01:30 05/27/25 01:29 DIAGNOSTICS / RADIOLOGY: [ ] ASSESSMENT: Intractable right lateral chest pain secondary to right 7th rib fracture, POA UTI failed outpatient treatment:POA Nephrolithiasis POA Leukocytosis POA Chronic anemia POA chronic use steroids POA Rheumatoid arthritis POA Hypothyroidism POA BPAD POA Mild protein energy malnutrition PLAN: #Intractable right lateral chest pain secondary to right 7th rib fracture, POA -she presented with the pain in her right lateral chest which she attribute secondary to titrate case she wore weeks back. -chest x-ray revealed nondisplaced indeterminate fracture of right 7th rib , posterior lateral aspect. -chest CT revealed cortical irregularity along the inner cortex of the ankle of the right , without adjacent soft tissue component representing age-indeterminat e fracture. -pain management with morphine PRN. Incentive spirometry -we will get PTH, vitamin-D. Low Trauma rib fracture can be presentation of osteoporosis which can happen in this patient with a long history of steroid use, rheumatoid arthritis status post bariatric surgery and history of thyrotoxicosis. We will get outpatient DEXA scan for her #UTI failed outpatient treatment, POA #Leukocytosis, POA # nephrolithiasis -patient being treated as an outpatient for UTI with Keflex. She do have a history of recurrent UTI. UA suggestive of infection. Urine culture negative. Ultrasound kidney revealed by 5x4 mm left non obstructing calculi. -Antibiotics: Rocephin 1 g every 24 hours -we will consider getting renal ultrasound to look for predisposing conditions for recurrent UTI. # Chronic anemia POA -hemoglobin 10.5. Iron 86, TIBC 270, saturation 31.8%. -looks like anemia with multifactorial with possible contribution from rheumatoid arthritis -we will monitor hemoglobin. #Hypothyroidism POA -she has a history of thyroidectomy for thyrotoxicosis. She is on levothyroxine 150 mcg at her home along with leothyronine 25 mcg. She sees Endocrinology as outpatient. Her TSH is less than 0.01 -we will consider decreasing levothyroxine to 125 mcg daily and continue leothyronine 25 mcg #Rheumatoid arthritis POA #Chronic use steroids POA -patient is being treated with rituximab two doses of injection every six- month. She also takes prednisolone 5 mg for 3 days for the flare-up -she visits the Rheumatology. # BPAD POA -We will continue quetiapine, lamotrigine and fluoxetine DVT prophylaxis Lovenox GI prophylaxis famotidine ATTESTATION BY PHYSICIAN I have seen and examined the patient. I reviewed the documentation, medical decision making, and treatment plan as noted by the resident physician above. I agree with the findings and plan of care. Kin Valladares IV, MD, SUNIL MD Apr 28, 2025 17:51
[2025-04-28] MEDS: FAMOTIDINE 20MG TAB PO ONE (22:42)
[2025-04-29] VITALS: BP 90/55; PULSE 90; RESP 17; TEMP 97.8
[2025-04-29 04:00] VITALS: BP 93/58; PULSE 88; RESP 16; TEMP 98.1
[2025-04-29 04:56] LABS: IMMATURE GRANULOCYTE ABSOLUTE 0.05 K/uL (0-1); NUCLEATED RED BLOOD CELLS 0.0 % (0.0-0.19); PLATELET COUNT (AUTO) 315 K/uL (130-400); RED BLOOD CELL COUNT(AUTO) 3.41 MIL/uL (4.00-5.50); RED CELL DISTRIBUTION WIDTH 12.6 % (11.0-15.5); WHITE BLOOD COUNT (AUTO) 7.7 K/uL (4.8-10.8)
[2025-04-29 05:03] LABS: CREATININE 0.7 mg/dL (0.5-1.0); GLOMERULAR FILTR. RATE CALC 113.0 mL/min (>90); GLUCOSE,RANDOM 93.0 mg/dL (70-105); SODIUM SERUM 141.0 mmol/L (136-145); UREA NITROGEN, BLOOD 17.0 mg/dL (7-18)
[2025-04-29 08:00] VITALS: BP 111/69; PULSE 89; RESP 12; TEMP 98.1
[2025-04-29 10:30] VITALS: O2SAT 100
[2025-04-29] MEDS: FAMOTIDINE 20MG TAB PO SCH (10:56)
[2025-04-29 12:00] VITALS: BP 121/76; PULSE 99; RESP 12; TEMP 98.3
[2025-04-29] MEDS ORDERED: AMOX1TAB16 PO (13:33)
[2025-04-29] MEDS ORDERED: CHOL200059 PO (13:33)
[2025-04-29] MEDS ORDERED: CALC-322 PO (13:33)
--- NOTE | 2025-04-29 15:00 | DS ---
Discharge Summary Hospital Course Summary: This is a 39-year-old female that presents in ED with chief complaints multiple complaints right rib pain given to patient wearing a tight garments dress for 8 hours. Her pain is on her right rib cage under her breasts that radiates to her mid back started about two weeks after she wore her tight dress. She denies any trauma, or recent falls. She does reports having injections ( steroids) per her RA specialist. ) Also reports no dysuria. She reports no fever chills hematuria. Patient reports she recently was seen at [facility] ER two days ago for UTI and was sent home on oral antibiotics. She is still having UTI symptoms. Patient has significant medical history RA, hypothyroidism, hyperlipidemia and anemia. ER workup was done urinalysis consistent with UTI. WBCs elevated 11. She denies any chest pain, shortness a breath, dizziness. On the floor 04/27/2025: She was hemodynamically stable labs remarkable for hemoglobin 10.5, TSH less than 0.01. Urinalysis suggestive of UTI but urine culture negative which can be secondary to outpatient antibiotics use. We started her on Rocephin 1 g daily. We will also get ultrasound kidney to rule out predisposing condition for recurrent UTI. Chest x-ray revealed right 7th rib fracture which can be the possible cause for her right lateral chest pain. We will consider optimum pain management. She could have low-impact fracture probably because of low-density bone secondary to steroid use, rheumatoid arthritis, history of thyrotoxicosis. We will consider getting DEXA scan outpatient. She is on thyroid replacement post thyroidectomy. TSH was less than 0.01 so we consider decreasing the dose of levothyroxine from 150 mcg to 125 mcg. We will continue 25 mcg of leothyronine. She do have a history of bipolar disorder. As per the patient she is on lamotrigine, quetiapine and fluoxetine. 04/28/2025: She was evaluated at the bedside this morning. No overnight event. She is AAO x3. she said her lateral right chest pain is better with the pain medications. He is hemodynamically stable with the labs remarkable for WBC 10.3, hemoglobin 10.7, calcium, TSH less than 0.01. She is being treated for refractory UTI and intractable chest pain secondary to her right rib fracture. She is currently on Rocephin1 g daily, levothyroxine 125 mcg, leothyronine 25 mcg. Ultrasound kidney revealed 5 X4 mm left nonobstructing calculi. We will continue the antibiotic and chest pain management. 04/29/2025: He was evaluated at the bedside this morning. No overnight event. She said her pain is getting better. Labs WBC 7.7, hemoglobin 10.2, platelet 315, sodium 141, potassium 4.1, chloride 107, magnesium 2.1, calcium 7.7, PTH 67.9, vitamin-D 33.8. He is hemodynamically stable and symptomatically getting better. She is discharged today on amoxicillin /clavulanic acid 875-125 twice a day for 7 days for UTI. She do have 3 fracture for which she will be managed conservatively with basic pain management. Very concern of osteopenia/osteoporosis looking at her clinical condition and low-impact fracture. We will consider her highly to get DEXA scan as outpatient with her P CP. We are discharging her on calcium 500 mg daily and vitamin-D 2000 units daily. She also has renal stone5 X 4 mm on her left kidney which is nonobstructing. She needs to see Urology for the kidney stone as this could be the possible source of infection leading to refractory UTI. She will continue her rest of home medications at her home. She also needs workup for high PTH w ith mild hypocalcemia along with a history of kidney stone with her Endocrinology. As per patient her Endocrinology needs needs her to change the dose of levothyroxine depending upon the TSH. We want her to discuss about the adjustment of levothyroxine and liothyronine with her endocrinology. She is stable enough to be discharged today. Procedure(s): PATIENT: GRISELDA RANGEL MR#: [id number] : 1985 SEX: F AGE: 39 LOCATION: [facility] ORDER 1033 STATUS: REG REPORT#: [id number] SERVICE 1031 REASON: right rib pain ORDERING PHYSICIAN: GILLES KILGORE CNP PROCEDURE: RIB RT W C - RIBS UNI RT W PA CHEST 3+ VWS EXAM: CR right Rib and AP chest, 5 View. CLINICAL HISTORY: right rib pain COMPARISON: None provided. FINDINGS: LUNGS: The visualized lungs appear essentially clear. Heart size and pulmonary vessels are within normal limits. PLEURAL SPACES: No pneumothorax evident. No pleural effusions. BONES: There is concern for nondisplaced, age-indeterminate fracture at the posterior, lateral aspect of the right seventh rib. IMPRESSION: 1. Concern for nondisplaced, age-indeterminate fracture of the right seventh rib, posterior lateral aspect. No pneumothorax. /[place] DICTATED BY: SALEEM VELASQUEZ Jr., MD DATE: 04/26/251322 ELECTRONICALLY SIGNED BY: SALEEM VELASQUEZ Jr., MD DATE: 04/26/251322 PATIENT: GRISELDA RANGEL MR#: [id number] : 1985 SEX: F AGE: 39 LOCATION: [facility] ORDER 133 STATUS: ADM IN REPORT#: [id number] SERVICE 132 REASON: rib pain right sided x2 wks ORDERING PHYSICIAN: JOSH GAMBINO PROCEDURE: CHEST WO - CT CHEST W/O CONTRAST EXAM: CT Chest Without Intravenous Contrast. CLINICAL HISTORY: Right-sided limb pain for 2 weeks. TECHNIQUE: Axial CT images of the chest were acquired without intravenous contrast. Reformatted/MPR images were performed. Radiation dose: CTDIvol = 5.6 mGy, DLP = 198.10 mGy cm. CONTRAST: Without. COMPARISON: Right rib radiographs dated 04/26/2025, performed earlier on the same day at 10:25 hours. FINDINGS: LUNGS: No pulmonary mass. No focal airspace consolidation. No pneumothorax is seen. The lung parenchyma is grossly unremarkable on the limited chest field imaged. PLEURAL SPACES: No pleural effusion. HEART AND MEDIASTINUM: No cardiomegaly. No significant pericardial effusion. LYMPH NODES: No lymphadenopathy. CHEST WALL AND UPPER ABDOMEN: Cortical irregularity is noted along the inner cortex of the angle of the right seventh rib, series 7, image 54/104. No adjacent soft tissue component is seen. The gallbladder is surgically absent. Evidence of prior gastric bypass surgery is noted, with appropriately positioned gastrojejunal anastomosis. BONES: Cortical irregularity is noted along the inner cortex of the angle of the right seventh rib, series 7, image 54/104. No adjacent soft tissue component is seen. KIDNEYS: Multiple left renal upper polar calculi are seen, the largest measuring 1 cm with an average attenuation of 400 HU. No hydronephrosis is identified. SOFT TISSUES: Unremarkable. IMPRESSION: 1. Cortical irregularity along the inner cortex of the angle of the right seventh rib, without adjacent soft tissue component. Findings are similar to the prior right rib radiographs dated 04/26/2025, performed earlier on the same day and may represent age indeterminate fracture. /[place] DICTATED BY: ROBERT RAJAN MD DATE: 04/27/25223 ELECTRONICALLY SIGNED BY: ROBERT RAJAN MD DATE: 04/27/25223 PATIENT: GRISELDA RANGEL MR#: [id number] : 1985 SEX: F AGE: 39 LOCATION: [facility] ORDER 104 STATUS: ADM IN REPORT#: [id number] SERVICE 1039 REASON: RECURRENT UTI ORDERING PHYSICIAN: ROSANA REYES MD PROCEDURE: RENAL - US RENAL SONOGRAM EXAM Renal ultrasound. CLINICAL HISTORY Recurrent urinary tract infections. History of nephrolithiasis. COMPARISON: None. TECHNIQUE Gonzales-scale and limited color Doppler ultrasound evaluation of the kidneys and urinary bladder was performed. FINDINGS RIGHT KIDNEY The right kidney measures approximately 10.4 x 4.2 x 4.4 cm. Renal cortical thickness and echogenicity are preserved. No echogenic focus with posterior acoustic shadowing is identified. No hydronephrosis is present. LEFT KIDNEY The left kidney measures approximately 9.4 x 3.9 x 4.1 cm. Renal cortical thickness and echogenicity are preserved. Multiple echogenic foci are identified within the collecting system, the largest measuring approximately 5 x 5 mm, demonstrating posterior acoustic shadowing, compatible with nonobstructing renal calculi. No hydronephrosis is identified. URINARY BLADDER The urinary bladder wall measures approximately 3 mm in thickness and is within normal limits for the degree of distention. No intraluminal mass or calculus is identified. IMPRESSION * Nonobstructing left renal calculi, measuring up to 5 x 4 mm, without associated hydronephrosis. * Normal sonographic appearance of the right kidney. * No sonographic evidence of obstructive uropathy. In accordance with ACR Appropriateness Criteria, urologic consultation and clinical correlation are recommended. If symptoms persist or there is concern for interval stone migration or obstruction, noncontrast CT of the abdomen and pelvis may be considered for further evaluation. /[place] DICTATED BY: ROBERT RAJAN MD DATE: 04/27/252346 ELECTRONICALLY SIGNED BY: ROBERT RAJAN MD DATE: 04/27/252346 Assessment/Plan: ASSESSMENT: Intractable right lateral chest pain secondary to right 7th rib fracture, POA UTI failed outpatient treatment:POA Nephrolithiasis POA Leukocytosis POA Chronic anemia POA chronic use steroids POA Rheumatoid arthritis POA Hypothyroidism POA BPAD POA Mild protein energy malnutrition Discharge Instructions: You were admitted at [facility] for evaluation and management of right lateral chest pain. You were diagnosed to have UTI and right 7th rib fracture. -You are prescribed amoxicillin/clavulanic acid 875-125 mg twice a day for 7 days. -You are prescribed calcium carbonate tablet 500 mg daily for 30 days. You are also prescribed vitamin D3 tablet 2000 units daily for 30 days. Please take as instructed. -Take Tylenol 650 mg 4 times a day for the lateral chest pain. -Continue your rest of the home medications as instructed. -Continue regular diet -Please take plenty of water as you have 5x4 mm left sided nonobstructing kidney stone. -You have to follow up to your PCP within 3-5 days. You may need to get DEXA scan for bone density. -You have to follow up to your Endocrinology for modification of the levothyroxine as TSH was low and also evaluation for the raised PTH hormone within 1-2 weeks. -You have to follow up to Urology for the kidney stone within 1-2 weeks. Home Medications: Active Scripts Cholecalciferol (Vitamin D3) (Vitamin D3) 50 Mcg (2000 Unit) Tablet, 1 TAB PO DAILY for 30 Days, #30 TAB 0 Refills Prov:JORGE BANKS MD 04/29/25 Calcium Carbonate (Calcium) 500 Mg Calcium (1250 Mg) Tab.chew, 500 MG PO DAILY, #30 TAB.CHEW Prov:JORGE BANKS MD 04/29/25 Amoxicillin/Potassium Clav (Amox Tr-K Clv 875-125 mg Tab) 875 Mg-125 Mg Tablet, 1 TAB PO BID for 7 Days, #14 TAB 0 Refills Prov:JORGE BANKS MD 04/29/25 Reported Medications Galcanezumab-Gnlm (Emgality Syringe) 120 Mg/Ml Syringe, 120 MG SQ QMONTH, SYRINGE 04/27/25 Tirzepatide (Mounjaro) 15 Mg/0.5 Ml Pen.injctr, 15 MG SQ QWEEK 04/27/25 Famotidine (Famotidine) 40 Mg Tablet, 1 TAB PO DAILY for 30 Days, #30 TAB 0 Refills 04/27/25 Levothyroxine Sodium (Levothyroxine) 150 Mcg Capsule, 1 CAP PO DAILY for 30 Days, #30 CAP 0 Refills 04/27/25 Liothyronine Sodium (Liothyronine Sodium) 25 Mcg Tablet, 1 TAB PO DAILY for 30 Days, #30 TAB 0 Refills 04/27/25 Cetirizine HCl (Cetirizine HCl) 10 Mg Tablet, 1 TAB PO DAILY for allergy symptoms for 30 Days, #30 TAB 0 Refills 04/27/25 Zolpidem Tartrate (Ambien) 10 Mg Tablet, 1 TAB PO HSPRN PRN for sleep for 30 Days, #30 TAB 0 Refills 04/27/25 Rituximab-Abbs (Truxima) 10 Mg/Ml Vial, 1000 MG IV [id number], VIAL 03/14/25 Atorvastatin Calcium (Atorvastatin Calcium) 20 Mg Tablet, 1 TAB PO DAILY for 30 Days, #30 TAB 0 Refills 03/14/25 Sumatriptan Succinate (Sumatriptan Succinate) 100 Mg Tablet, 100 MG PO DAILY, TAB 03/14/25 Buspirone HCl (Buspar) 15 Mg Tab, 1 TAB PO HS for 30 Days, #60 TAB 0 Refills 03/14/25 Escitalopram Oxalate (Lexapro) 20 Mg Tablet, 1 TAB PO HS for 30 Days, #30 TAB 0 Refills 03/14/25 Naproxen (Naproxen) 500 Mg Tablet, 1 TAB PO BID PRN for ARTHRITIS for 30 Days, #60 TAB 0 Refills 03/14/25 Prednisone (Prednisone) 5 Mg Tablet, 1 TAB PO DAILY PRN for ARTHRITIS FLARE UP for 30 Days, #30 TAB 0 Refills 03/14/25 Galcanezumab-Gnlm (Emgality) 120 Mg/Ml Pen.injctr, 120 MG SQ QMONTH 03/14/25 Discontinued Reported Medications Levothyroxine Sodium (Levothyroxine) 125 Mcg Capsule, 1 CAP PO DAILY for 30 Days, #30 CAP 0 Refills 03/14/25 New Medications: Amoxicillin/Potassium Clav (Amox Tr-K Clv 875-125 mg Tab) 875 Mg-125 Mg Tablet 1 TAB PO BID for 7 Days, #14 TAB 0 Refills Calcium Carbonate (Calcium) 500 Mg Calcium (1250 Mg) Tab.chew 500 MG PO DAILY, #30 TAB.CHEW Cholecalciferol (Vitamin D3) (Vitamin D3) 50 Mcg (2000 Unit) Tablet 1 TAB PO DAILY for 30 Days, #30 TAB 0 Refills Continued Medications: Atorvastatin Calcium (Atorvastatin Calcium) 20 Mg Tablet 1 TAB PO DAILY for 30 Days, #30 TAB 0 Refills Buspirone HCl (Buspar) 15 Mg Tab 1 TAB PO HS for 30 Days, #60 TAB 0 Refills Cetirizine HCl (Cetirizine HCl) 10 Mg Tablet 1 TAB PO DAILY for allergy symptoms for 30 Days, #30 TAB 0 Refills Escitalopram Oxalate (Lexapro) 20 Mg Tablet 1 TAB PO HS for 30 Days, #30 TAB 0 Refills Famotidine (Famotidine) 40 Mg Tablet 1 TAB PO DAILY for 30 Days, #30 TAB 0 Refills Galcanezumab-Gnlm (Emgality) 120 Mg/Ml Pen.injctr 120 MG SQ QMONTH Galcanezumab-Gnlm (Emgality Syringe) 120 Mg/Ml Syringe 120 MG SQ QMONTH, SYRINGE Levothyroxine Sodium (Levothyroxine) 150 Mcg Capsule 1 CAP PO DAILY for 30 Days, #30 CAP 0 Refills Liothyronine Sodium (Liothyronine Sodium) 25 Mcg Tablet 1 TAB PO DAILY for 30 Days, #30 TAB 0 Refills Naproxen (Naproxen) 500 Mg Tablet 1 TAB PO BID PRN for ARTHRITIS for 30 Days, #60 TAB 0 Refills Prednisone (Prednisone) 5 Mg Tablet 1 TAB PO DAILY PRN for ARTHRITIS FLARE UP for 30 Days, #30 TAB 0 Refills Rituximab-Abbs (Truxima) 10 Mg/Ml Vial 1000 MG IV [id number], VIAL Sumatriptan Succinate (Sumatriptan Succinate) 100 Mg Tablet 100 MG PO DAILY, TAB Tirzepatide (Mounjaro) 15 Mg/0.5 Ml Pen.injctr 15 MG SQ QWEEK Zolpidem Tartrate (Ambien) 10 Mg Tablet 1 TAB PO HSPRN PRN for sleep for 30 Days, #30 TAB 0 Refills Discontinued Medications: Levothyroxine Sodium (Levothyroxine) 125 Mcg Capsule 1 CAP PO DAILY for 30 Days, #30 CAP 0 Refills Time spent arranging discharge: 1-30 minutes ATTESTATION BY PHYSICIAN I have seen and examined the patient. I reviewed the documentation, medical decision making, and treatment plan as noted by the resident physician above. I agree with the findings and plan of care. Kin Valladares IV, MD, SUNIL MD Apr 29, 2025 15:00
--- NOTE | 2025-04-29 16:36 | NUR ---
DISCHARGE PT PIV DC'D PT VERBALIZED UNDERSTANDING OF DISCHARGE INSTRUCTIONS PT GATHERED AND TOOK ALL BELONGINGS PT HAD NO FURTHER QUESTIONS AT TIME OF DISCHARGE
== END 2025-04-29 16:30 | disposition still patient (30) ==
LOC: EDH 10:22 → EDHIP 10:23 → UNDOADMIN 10:23 → EDHIP 19:35 → 3BH 23:13 → INTOOBSV 04-27 11:35 → EDHIP 04-27 11:35
PROVIDERS: ADMIT Internal Medicine; ATTEND Internal Medicine
DX: R07.89 Other chest pain (principal); N39.0 Urinary tract infection, site not specified; D64.9 Anemia, unspecified; E89.0 Postprocedural hypothyroidism; E11.9 Type 2 diabetes mellitus without complications; N20.0 Calculus of kidney; E78.00 Pure hypercholesterolemia, unspecified; M06.9 Rheumatoid arthritis, unspecified; G43.909 Migraine, unspecified, not intractable, without status migrainosus; E44.1 Mild protein-calorie malnutrition; F31.9 Bipolar disorder, unspecified; Z90.710 Acquired absence of both cervix and uterus; Z98.84 Bariatric surgery status; Z79.899 Other long term (current) drug therapy; Z98.890 Other specified postprocedural states
CPT/HCPCS: 96376 ×4; 96366 ×4; 96375; 99285; 83036; 83540; 83550; 80048 ×3; 85025 ×4; 85610; 87086; 82948 ×12; 82306; 81001; 81025; 36415 ×4; 71101; 71250; 96365; 84443; 83735; 82330; 80061; 80053; 83970; 76770; 96372 ×2; 82270; J2270 ×12; J7030; J0696 ×4; J2405 ×2; G0378 ×53; J1650 ×2; J1815

== ENCOUNTER 2025-05-04 00:45 | Emergency (ER) | payer MEDICAID ==
[~2025-05-04] VITALS: Ht 170.2 cm; Wt 129.7 kg
[~2025-05-04 00:45] MED LIST changes: +AMOX1TAB16 PO; +CALC-322 PO; +CETI10TA57 PO; +CHOL200059 PO; +FAMO40TA7 PO; +GALC120S SQ; -LEVO125C5 PO; +LEVO150C5 PO; +LIOT25TA12 PO; +TIRZ15PE SQ; +ZOLP-685 PO
[2025-05-04 01:11] LABS: APPEARANCE,URINE CLEAR (CLEAR); GLUCOSE, URINE (UA) NEGATIVE (NEGATIVE); LEUKOCYTE ESTERASE ,URINE NEGATIVE Leu/uL (NEGATIVE); NITRATE,URINE NEGATIVE (NEGATIVE); OCCULT BLOOD,URINE NEGATIVE (NEGATIVE)
[2025-05-04 01:13] LABS: ADD UA MICROSCOPIC NO
[2025-05-04 01:19] LABS: IMMATURE GRANULOCYTE ABSOLUTE 0.05 K/uL (0-1); NUCLEATED RED BLOOD CELLS 0.0 % (0.0-0.19); PLATELET COUNT (AUTO) 350 K/uL (130-400); RED BLOOD CELL COUNT(AUTO) 3.75 MIL/uL (4.00-5.50); RED CELL DISTRIBUTION WIDTH 13.0 % (11.0-15.5); WHITE BLOOD COUNT (AUTO) 9.5 K/uL (4.8-10.8)
[2025-05-04 01:32] LABS: CREATININE 1.0 mg/dL (0.5-1.0); GLOMERULAR FILTR. RATE CALC 73.0 mL/min (>90); GLUCOSE,RANDOM 110.0 mg/dL (70-105); SODIUM SERUM 139.0 mmol/L (136-145); UREA NITROGEN, BLOOD 14.0 mg/dL (7-18)
--- NOTE | 2025-05-04 02:06 | ERN ---
ED Note History of Present Illness Stated Complaint: DYSURIA, RECURRENT UTI, R RIB PAIN Chief Complaint: Multiple Complaints Time Seen by MD: 00:50 Dictation: 37-YEAR-OLD FEMALE PRESENTS TO ER WITH MULTIPLE COMPLAINTS. PATIENT STATES SHE WANTS TO GET HER URINE CHECKED TO MAKE SURE HER UTI IS GONE, SHE WANTS TO GET AN X-RAY RETURN FOR RIGHT RIB FRACTURE SHE HAS HAD IN THE RECENT LAST WEEK AND SHE WANTS TO GET HER BLOOD WORK CHECKED TO MAKE SURE SHE IS NOT DEHYDRATED SINCE SHE FEELS HER LIPS ARE DRY. Allergies: Coded Allergies: emollient base (Unverified Allergy, Unknown, 02/13/24) tretinoin (Unverified Allergy, Unknown, 02/13/24) upadacitinib (Unverified Allergy, Unknown, SHORTNESS OF BREATH, 03/02/25) Home Meds Active Scripts Cholecalciferol (Vitamin D3) (Vitamin D3) 50 Mcg (2000 Unit) Tablet, 1 TAB PO DAILY for 30 Days, #30 TAB 0 Refills Prov:JORGE BANKS MD 04/29/25 Calcium Carbonate (Calcium) 500 Mg Calcium (1250 Mg) Tab.chew, 500 MG PO DAILY, #30 TAB.CHEW Prov:JORGE BANKS MD 04/29/25 Amoxicillin/Potassium Clav (Amox Tr-K Clv 875-125 mg Tab) 875 Mg-125 Mg Tablet, 1 TAB PO BID for 7 Days, #14 TAB 0 Refills Prov:JORGE BANKS MD 04/29/25 Reported Medications Galcanezumab-Gnlm (Emgality Syringe) 120 Mg/Ml Syringe, 120 MG SQ QMONTH, SYRINGE 04/27/25 Tirzepatide (Mounjaro) 15 Mg/0.5 Ml Pen.injctr, 15 MG SQ QWEEK 04/27/25 Famotidine (Famotidine) 40 Mg Tablet, 1 TAB PO DAILY for 30 Days, #30 TAB 0 Refills 04/27/25 Levothyroxine Sodium (Levothyroxine) 150 Mcg Capsule, 1 CAP PO DAILY for 30 Days, #30 CAP 0 Refills 04/27/25 Liothyronine Sodium (Liothyronine Sodium) 25 Mcg Tablet, 1 TAB PO DAILY for 30 Days, #30 TAB 0 Refills 04/27/25 Cetirizine HCl (Cetirizine HCl) 10 Mg Tablet, 1 TAB PO DAILY for allergy symptoms for 30 Days, #30 TAB 0 Refills 04/27/25 Zolpidem Tartrate (Ambien) 10 Mg Tablet, 1 TAB PO HSPRN PRN for sleep for 30 Days, #30 TAB 0 Refills 04/27/25 Rituximab-Abbs (Truxima) 10 Mg/Ml Vial, 1000 MG IV [id number], VIAL 03/14/25 Atorvastatin Calcium (Atorvastatin Calcium) 20 Mg Tablet, 1 TAB PO DAILY for 30 Days, #30 TAB 0 Refills 03/14/25 Sumatriptan Succinate (Sumatriptan Succinate) 100 Mg Tablet, 100 MG PO DAILY, TAB 03/14/25 Buspirone HCl (Buspar) 15 Mg Tab, 1 TAB PO HS for 30 Days, #60 TAB 0 Refills 03/14/25 Escitalopram Oxalate (Lexapro) 20 Mg Tablet, 1 TAB PO HS for 30 Days, #30 TAB 0 Refills 03/14/25 Naproxen (Naproxen) 500 Mg Tablet, 1 TAB PO BID PRN for ARTHRITIS for 30 Days, #60 TAB 0 Refills 03/14/25 Prednisone (Prednisone) 5 Mg Tablet, 1 TAB PO DAILY PRN for ARTHRITIS FLARE UP f or 30 Days, #30 TAB 0 Refills 03/14/25 Galcanezumab-Gnlm (Emgality) 120 Mg/Ml Pen.injctr, 120 MG SQ QMONTH 03/14/25 Discontinued Reported Medications Levothyroxine Sodium (Levothyroxine) 125 Mcg Capsule, 1 CAP PO DAILY for 30 Days, #30 CAP 0 Refills 03/14/25 Past Medical History Past Medical History: Other Additional Past Medical Hx: RECURRENT UTI, KIDNEY STONES, RHEUMATOID ARTHRITIS Surgical History: Unknown Surgical History Other: GASTRIC BYPASS AND SLEEVE, THYROIDECTOMY Review of System Dictation CONSTITUTIONAL: NEGATIVE FOR FEVER,CHILLS, AND WEIGHT LOSS EYES: NEGATIVE FOR INJURY, PAIN,REDNESS, AND DISCHARGE ENT: NEGATIVE FOR INJURY,PAIN OR SWELLING CARDIOVASCULAR: NEGATIVE FOR PALPITATIONS, AND EDEMA. POSITIVE RIGHT RIB CHEST AREA PAIN RESPIRATORY: NEGATIVE FOR SHORTNESS OF BREATH, COUGH, WHEEZING, AND PLEURITIC CHEST PAIN ABDOMEN/GI: NEGATIVE FOR ABDOMINAL PAIN, NAUSEA, VOMITING AND DIARRHEA. BACK: NEGATIVE FOR PAIN OR INJURY : NEGATIVE FOR INJURY, BLEEDING AND DISCHARGE MS/EXTREMITY: NEGATIVE FOR INJURY AND DEFORMITY SKIN: NEGATIVE FOR RASH, AND DISCOLORATION NEURO: NEGATIVE FOR HEADACHE, WEAKNESS, NUMBNESS, TINGLING, AND SEIZURE PSYCH: NEGATIVE FOR SUICIDE IDEATION, HOMICIDAL IDEATION, AND HALLUCINATIONS ALLERGY/IMMUNOLOGY: NEGATIVE FOR HIVES, RASH, AND ALLERGIES ALL SYSTEMS NEGATIVE, EXCEPT NOTED ABOVE. 13 POINT REVIEW OF SYSTEMS ASSESSED AND ALL NEGATIVE EXCEPT FOR ABOVE. Initial Vital Sign VS Vital Signs Date Time Temp Pulse Resp B/P (MAP) Pulse Ox O2 Delivery O2 Flow Rate FiO2 05/04/25 00:52 97.7 97 18 99/67 98 Room Air 0 Physical Exam Dictation GENERAL: AWAKE, ALERT, NAD HEAD/FACE: NORMOCEPHALIC, ATRAUMATIC EYES: PERRL, EOMI, VISION AT BASELINE ENT: ORAL CAVITY CLEAR, TMS CLEAR, NO SIGNS OF INFECTION NECK: TRACHEA MIDLINE, SUPPLE, NO NUCHAL RIGIDITY CARDIOVASCULAR: RRR, NORMAL NO JVD RESPIRATORY: CTAB, NO RESPIRATORY DISTRESS, NO RALES OR WHEEZES ABDOMEN: SOFT, NON-TENDER, NON-DISTENDED, NORMAL BOWEL SOUNDS, NO GUARDING OR REBOUND. SKIN: WARM, DRY, NORMAL TURGOR, NO RASH MS/EXTREMITY: PULSES EQUAL, NO CYANOSIS, NEUROVASCULAR INTACT, FROM NEURO: COAX4, GCS 15, STRENGTH 5/5, CN 2-12 INTACT, NORMAL CEREBELLAR EXAM, NORM AL GAIT, PSYCH: NORMAL BEHAVIOR, MOOD, AND AFFECT NORMAL Results (Laboratory/Radiology) Laboratory/Radiology Laboratory Tests Test 05/04/25 00:55 05/04/25 01:13 Urine Color LIGHT-YELLOW (YELLOW) Urine Appearance CLEAR (CLEAR) Urine pH 6.0 (5.0-8.0) Urine Specific [place] 1.018 (1.001-1.031) Urine Protein NEGATIVE mg/dL (NEGATIVE) Urine Glucose (UA) NEGATIVE mg/dL (NEGATIVE) Urine Ketones NEGATIVE mg/dL (NEGATIVE) Urine Occult Blood NEGATIVE (NEGATIVE) Urine Nitrate NEGATIVE (NEGATIVE) Urine Bilirubin NEGATIVE mg/dL (NEGATIVE) Urine Urobilinogen 0.2 mg/dL (0.2-1.0) Urine Leukocyte Esterase NEGATIVE [place]/uL White Blood Count 9.5 K/uL (4.8-10.8) Red Blood Count 3.75 MIL/uL (4.00-5.50) L Hemoglobin 11.6 g/dL (12.0-16.0) L Hematocrit 35.3 % (36-48) L Mean Corpuscular Volume 94.1 fL (79-99) Mean Corpuscular Hemoglobin 30.9 pg (27.0-33.0) Mean Corpuscular Hemoglobin Concent 32.9 g/dL (32.0-36.0) Red Cell Distribution Width 13.0 % (11.0-15.5) Platelet Count 350 K/uL (130-400) Mean Platelet Volume 10.2 fL (7.5-10.5) Immature Granulocyte % (Auto) 0.5 % (0-1) Neutrophils (%) (Auto) 80.9 % (40.0-77.0) H Lymphocytes (%) (Auto) 13.8 % (21.0-51.0) L Monocytes (%) (Auto) 4.0 % (3.0-13.0) Eosinophils (%) (Auto) 0.4 % (0.0-8.0) Basophils (%) (Auto) 0.4 % (0.0-5.0) Neutrophils # (Auto) 7.6 K/uL (1.8-7.7) Lymphocytes # (Auto) 1.3 K/uL (1.0-4.8) Monocytes # (Auto) 0.4 K/uL (0.1-1.0) Eosinophils # (Auto) 0.04 K/uL (0.00-0.70) Basophils # (Auto) 0.04 K/uL (0.00-0.20) Absolute Immature Granulocyte (auto 0.05 K/uL (0-1) Nucleated Red Blood Cells 0.0 % (0.0-0.19) Sodium Level 139 mmol/L (136-145) Potassium Level 4.5 mmol/L (3.5-5.1) Chloride Level 105 mmol/L (101-111) Carbon Dioxide Level 27 mmol/L (21-32) Blood Urea Nitrogen 14 mg/dL (7-18) Creatinine 1.0 mg/dL (0.5-1.0) Glomerular Filtration Rate Calc 73 mL/min (>90) Random Glucose 110 mg/dL (70-105) H Total Calcium 8.5 mg/dL (8.5-10.1) ED Course ED Course Orders Procedure Category Date Status Time Urinalysis Profile LAB 05/04/25 Complete 01:01 Cbc With Differential LAB 05/04/25 Complete 01:02 Basic Metabolic Panel LAB 05/04/25 Complete 01:02 Ribs Unilat 2v Rt RAD 05/04/25 Taken 01:50 Vital Signs Date Time Temp Pulse Resp B/P (MAP) Pulse Ox O2 Delivery O2 Flow Rate FiO2 05/04/25 00:52 97.7 97 18 99/67 98 Room Air 0 Medical Decision Making MDM MDM: DIFFERENTIAL DIAGNOSIS: INTRACTABLE PAIN, UTI, DEHYDRATION RATIONALE: TESTS CONSIDERED AND ORDERED SECONDARY TO SHARED DECISION MAKING INCLUDE: LABS, ECG AND RADIOLOGY PREVIOUS OUTSIDE RECORDS REVIEWED: OLD ER VISITS. RISK OF COMPLICATION AND/OR MORBIDITY OR MORTALITY OF PATIENT MANAGEMENT: NONE MEDICATIONS-PER MEDICATION RECONCILIATION NEED FOR HOSPITALIZATION: PATIENT DOES NOT MEET CRITERIA FOR HOSPITALIZATION. NEED FOR EMERGENCY MAJOR/MINOR SURGERY: NO THERE ARE NO SOCIAL CONCERNS WITH THIS PATIENT. PRESCRIPTION DRUG MANAGEMENT PRESCRIPTIONS WILL INCLUDE SYMPTOMATIC CARE PATIENT'S PRIOR EXTERNAL MEDICAL RECORDS FROM OTHER ER VISITS WERE REVIEWED BY ME INDICATED. PRIOR TESTING AND RESULTS FROM PREVIOUS VISITS WERE REVIEWED. PRIOR TESTS WERE TAKEN INTO ACCOUNT WITH MEDICAL DECISION MAKING AND RESOURCE UTILIZATION, INDEPENDENT HISTORIAN/HISTORIANS WERE USED TO OBTAIN COMPLETE M EDICAL HISTORY. I INDEPENDENTLY INTERPRETED THE TEST THAT WERE PERFORMED, RESULTS WERE REVIEWED BY ME AND CONSIDERED FINDINGS ON RADIOLOGY IF ORDERED. RESULTS UNREMARKABLE. NO MAJOR CHANGES ON X-RAY. DX & DISP Disposition: Discharge Departure Impression: Primary Impression: Rib pain Condition: Stable Additional Instructions: FOLLOW-UP WITH YOUR PCP IN 24-72 HOURS AND IN THE EVENT IF SYMPTOMS WORSEN OR AN EMERGENCY OVERNIGHT REPORT TO THE ED IMMEDIATELY Referrals: SELF,REFERRAL (PCP) MISAEL LOJA May 04, 2025 02:06
[2025-05-04 03:20] VITALS: BP 102/64; PULSE 92; RESP 16; TEMP 98; O2SAT 99
--- NOTE | 2025-05-04 03:22 | HMCIMG ---
EXAM: CR right Rib, 5 View. CLINICAL HISTORY: PAIN COMPARISON: None provided. FINDINGS: LUNGS: The visualized lungs appear essentially clear. PLEURAL SPACES: No pneumothorax evident. No pleural effusions. BONES: No visible acute rib fracture; however small cortical irregularity along the inner border of the lateral end of the right seventh rib. IMPRESSION: No visible acute rib fracture; however small cortical irregularity along the inner border of the lateral end of the right seventh rib. No pneumothorax. Advise CT correlation. /[place]
--- NOTE | 2025-05-04 03:36 | NUR ---
DISCHARGED WITHOUT PRINTED DISCHARGE INSTRUCTIONS
== END 2025-05-04 03:37 | disposition home or self-care (01) ==
LOC: EDH 00:45
DX: R07.81 Pleurodynia (principal); R07.89 Other chest pain; M06.9 Rheumatoid arthritis, unspecified; Z88.8 Allergy status to other drugs, medicaments and biological substances; Z79.899 Other long term (current) drug therapy; Z79.890 Hormone replacement therapy; Z90.89 Acquired absence of other organs; Z98.84 Bariatric surgery status; Z87.442 Personal history of urinary calculi; Z87.440 Personal history of urinary (tract) infections
CPT/HCPCS: 36415; 71100; 80048; 81003; 85025; 99284